=== PATIENT | female | born 1970 | race Caucasian/White ===

== ENCOUNTER 2016-12-22 18:47 | Emergency (ER) | payer BC, OTHER ==
[2016-12-22] MEDS ORDERED: ONDANSETRON 4 MG/2 ML VIAL IVP STA (19:00)
[2016-12-22] MEDS ORDERED: SODIUM CHLORIDE 0.9% 1,000 ML IV STA ×3 (19:00→20:15)
[2016-12-22] MEDS ORDERED: HYDROmorphone 1 MG/ML 1 ML SYRINGE IVP STA (19:00)
[2016-12-22] MEDS ORDERED: RX INFO: IV CONTRAST WAS GIVEN 1 EACH MISC MISCELLANE PRN (19:01)
--- NOTE | 2016-12-22 19:05 | ED ---
Abdominal Pain HPI - General Chief Complaint: Abdominal Pain Stated Complaint: pelvic pain Time Seen by Provider: 12/22/16 18:53 Source: patient, RN notes reviewed Mode of arrival: wheelchair Limitations: no limitations - History of Present Illness Initial Comments: Patient is a 46-year-old female with chief complaint of an acute onset of right lower quadrant abdominal pain. Patient reports that she has a history of ovarian cysts and also was told that she had a large appendix in the past. Patient reports that she was admitted to the hospital about 10 months ago for these issues. Patient reports that she did not have any surgery to remove the [place] ovarian cysts or they did not see that it was an acute appendicitis at that time. Patient reports that she was eating dinner and all of a sudden the pain occurred to her. Patient states that she rates the pain a 10 out of 10. She states it's worse with walking or the bumps in the car. Patient denies any recent fever or chills. She denies any trouble with urination or bowel movements. She is currently on her menstrual cycle, and has history of anemia while on her menstrual cycle. - Related Data Home Medications Medication Instructions Recorded Confirmed Venlafaxine HCl [Effexor] 150 mg PO DAILY 02/09/16 12/22/16 Previous Rx's Medication Instructions Recorded Ondansetron Odt [Zofran Odt] 4 mg PO Q8HR PRN #12 tab 12/22/16 traMADol HCl [Ultram] 50 mg PO Q6H PRN #20 tab 12/22/16 Allergies Allergy/AdvReac Type Severity Reaction Status Date / Time codeine Allergy Intermediate Nausea & Verified 12/22/16 18:50 Vomiting aspartame AdvReac Mild Rash/Hives Verified 12/22/16 18:50 Review of Systems ROS Statement: Those systems with pertinent positive or pertinent negative responses have been documented in the HPI. ROS Other: All systems not noted in ROS Statement are negative. Past Medical History Past Medical History: Sleep Apnea/CPAP/BIPAP Additional Past Medical History / Comment(s): sleep apnea, uses a cpap, depression, mild anemia History of Any Multi-Drug Resistant Organisms: None Reported Past Surgical History: Orthopedic Surgery Additional Past Surgical History / Comment(s): ovarian cyst, cervix biopsy, repail raidal fracture in right foot. Lateral release of right knee Past Anesthesia/Blood Transfusion Reactions: No Reported Reaction Additional Past Anesthesia/Blood Transfusion Reaction / Comment(s): mother had a wierd reaction to anesthesia with wierd dreams. Past Psychological History: Depression Smoking Status: Current every day smoker Past Alcohol Use History: None Reported, Occasional Past Drug Use History: None Reported - Past Family History Mother Family Medical History: Cancer, Dementia, Eye Disorder, Hypertension, Thyroid Disorder Additional Family Medical History / Comment(s): skin cancer, ovarian cysts, cataracts Father Family Medical History: Hypertension Additional Family Medical History / Comment(s): muscle aches for which he drink 8 ounces of tonic water every day. General Exam - General Exam Comments Initial Comments: Pleasant 46-year-old female. Patient does appear to be in significant discomfort. Limitations: no limitations General appearance: alert, in no apparent distress Head exam: Present: atraumatic, normocephalic, normal inspection Eye exam: Present: normal appearance, PERRL, EOMI. Absent: scleral icterus, conjunctival injection, periorbital swelling ENT exam: Present: normal exam, mucous membranes moist Neck exam: Present: normal inspection. Absent: tenderness, meningismus, lymphadenopathy Respiratory exam: Present: normal lung sounds bilaterally. Absent: respiratory distress, wheezes, rales, rhonchi, stridor Cardiovascular Exam: Present: regular rate, normal rhythm, normal heart sounds. Absent: systolic murmur, diastolic murmur, rubs, gallop, clicks GI/Abdominal exam: Present: soft, tenderness (Significant tenderness and guarding in the right lower quadrant.), guarding, normal bowel sounds. Absent: distended, rebound, rigid Extremities exam: Present: normal inspection, full ROM, normal capillary refill. Absent: tenderness, pedal edema, joint swelling, calf tenderness Back exam: Present: normal inspection Neurological exam: Present: alert, oriented X3, CN II-XII intact Psychiatric exam: Present: normal affect, normal mood Skin exam: Present: warm, dry, intact, normal color. Absent: rash Course Vital Signs 12/22/16 12/22/16 12/22/16 18:49 20:37 22:48 Temperature 99.5 F 97.5 F L 98.2 F Pulse Rate 89 85 83 Respiratory 22 18 20 Rate Blood Pressure 161/74 150/76 147/74 O2 Sat by Pulse 97 100 98 Oximetry Medical Decision Making - Medical Decision Making Patient is a 46-year-old female with chief complaint of an acute onset of right lower quadrant abdominal pain. Patient reports that she has a history of ovarian cysts and also was told that she had a large appendix in the past. Patient reports that she was admitted to the hospital about 10 months ago for these issues. Patient reports that she did not have any surgery to remove the [place] ovarian cysts or they did not see that it was an acute appendicitis at that time. Patient reports that she was eating dinner and all of a sudden the pain occurred to her. Patient states that she rates the pain a 10 out of 10. She states it's worse with walking or the bumps in the car. Patient's lab work was obtained and patient was given IV pain medication. Patient's CBC is significant for anemia. Hemoglobin of 9.5, patient reports that she does take iron pills. Patient did have a mildly elevated lactic acid of 2.6. Patient was rehydrated with 2 L of bolus and maintenance rate. Patient CT did make mention of right-sided ovarian cyst, no evidence of acute appendicitis. Transvaginal ultrasound shows bilateral ovarian cystic masses. The right cyst measures 9 cm x 6 cm. Left cyst measures 5 cm x 4 centers, no evidence of ovarian torsion. . There is also evidence of uterine fibroid. I discussed that the patient's anemia is likely related to the significant blood loss from her.. She is currently taking iron supplements. I discussed with the patient that she needs to follow-up with an [facility] for surgical consult of total hysterectomy. Patient's pain is related to a the right cyst. Patient agrees to call her insurance company tomorrow and discuss the possibility of surgeries. I will discharge the patient with pain medication and have her follow-up on Saturday. - Lab Data Result diagrams: 12/22/16 19:25 12/22/16 19:25 Lab Results 12/22/16 12/22/16 12/22/16 Range/Units 19:25 19: 19: WBC 8.6 (3.8-10.6) k/uL RBC 4.19 (3.80-5.40) m/uL Hgb 9.5 L (11.4-16.0) gm/dL Hct 31.1 L (34.0-46.0) % MCV 74.3 L (80.0-100.0) fL MCH 22.7 L (25.0-35.0) pg MCHC 30.5 L (31.0-37.0) g/dL RDW 15.8 H (11.5-15.5) % Plt Count 343 (150-450) k/uL Neutrophils % 70 % Lymphocytes % 20 % Monocytes % 5 % Eosinophils % 2 % Basophils % 1 % Neutrophils # 6.0 (1.3-7.7) k/uL Lymphocytes # 1.7 (1.0-4.8) k/uL Monocytes # 0.4 (0-1.0) k/uL Eosinophils # 0.2 (0-0.7) k/uL Basophils # 0.1 (0-0.2) k/uL Hypochromasia Marked Microcytosis Slight PT (9.0-12.0) sec INR (<1.1) APTT (22.0-30.0) sec Sodium 140 (137-145) mmol/L Potassium 3.8 (3.5-5.1) mmol/L Chloride 102 (98-107) mmol/L Carbon Dioxide 26 (22-30) mmol/L Anion Gap 12 mmol/L BUN 12 (7-17) mg/dL Creatinine 0.90 (0.52-1.04) mg/dL Est GFR (MDRD) Af Amer >60 (>60 ml/min/1.73 sqM) Est GFR (MDRD) Non-Af >60 (>60 ml/min/1.73 sqM) Glucose 100 H (74-99) mg/dL Plasma Lactic Acid Tomy (0.7-2.0) mmol/L Calcium 9.2 (8.4-10.2) mg/dL Total Bilirubin 0.3 (0.2-1.3) mg/dL AST 23 (14-36) U/L ALT 32 (9-52) U/L Alkaline Phosphatase 97 (38-126) U/L Total Protein 7.0 (6.3-8.2) g/dL Albumin 4.3 (3.5-5.0) g/dL Amylase 44 (30-110) U/L Lipase 138 (23-300) U/L Urine Color Yellow Urine Appearance Clear (Clear) Urine pH 7.5 (5.0-8.0) Ur Specific [place] 1.014 (1.001-1.035) Urine Protein Negative (Negative) Urine Glucose (UA) Negative (Negative) Urine Ketones Negative (Negative) Urine Blood Moderate H (Negative) Urine Nitrite Negative (Negative) Urine Bilirubin Negative (Negative) Urine Urobilinogen <2.0 (<2.0) mg/dL Ur Leukocyte Esterase Negative (Negative) Urine RBC >182 H (0-5) /hpf Urine WBC 3 (0-5) /hpf Ur Squamous Epith Cells 8 H (0-4) /hpf Amorphous Sediment Rare H (None) /hpf Hyaline Casts 1 (0-2) /lpf Urine Mucus Occasional H (None) /hpf 12/22/16 12/22/16 Range/Units 19:25 19:25 WBC (3.8-10.6) k/uL RBC (3.80-5.40) m/uL Hgb (11.4-16.0) gm/dL Hct (34.0-46.0) % MCV (80.0-100.0) fL MCH (25.0-35.0) pg MCHC (31.0-37.0) g/dL RDW (11.5-15.5) % Plt Count (150-450) k/uL Neutrophils % % Lymphocytes % % Monocytes % % Eosinophils % % Basophils % % Neutrophils # (1.3-7.7) k/uL Lymphocytes # (1.0-4.8) k/uL Monocytes # (0-1.0) k/uL Eosinophils # (0-0.7) k/uL Basophils # (0-0.2) k/uL Hypochromasia Microcytosis PT 10.5 (9.0-12.0) sec INR 1.0 (<1.1) APTT 23.7 (22.0-30.0) sec Sodium (137-145) mmol/L Potassium (3.5-5.1) mmol/L Chloride (98-107) mmol/L Carbon Dioxide (22-30) mmol/L Anion Gap mmol/L BUN (7-17) mg/dL Creatinine (0.52-1.04) mg/dL Est GFR (MDRD) Af Amer (>60 ml/min/1.73 sqM) Est GFR (MDRD) Non-Af (>60 ml/min/1.73 sqM) Glucose (74-99) mg/dL Plasma Lactic Acid Tomy 2.6 H* (0.7-2.0) mmol/L Calcium (8.4-10.2) mg/dL Total Bilirubin (0.2-1.3) mg/dL AST (14-36) U/L ALT (9-52) U/L Alkaline Phosphatase (38-126) U/L Total Protein (6.3-8.2) g/dL Albumin (3.5-5.0) g/dL Amylase (30-110) U/L Lipase (23-300) U/L Urine Color Urine Appearance (Clear) Urine pH (5.0-8.0) Ur Specific [place] (1.001-1.035) Urine Protein (Negative) Urine Glucose (UA) (Negative) Urine Ketones (Negative) Urine Blood (Negative) Urine Nitrite (Negative) Urine Bilirubin (Negative) Urine Urobilinogen (<2.0) mg/dL Ur Leukocyte Esterase (Negative) Urine RBC (0-5) /hpf Urine WBC (0-5) /hpf Ur Squamous Epith Cells (0-4) /hpf Amorphous Sediment (None) /hpf Hyaline Casts (0-2) /lpf Urine Mucus (None) /hpf - Radiology Data Radiology results: report reviewed Bilateral large cystic pelvic masses appear not significantly different than old computed tomography scan a . Consistent with ovarian cyst. Left renal parapelvic cyst. Normal appendix. There is probably a single gallstone. Transvaginal ultrasound obtained shows bilateral ovarian cystic masses. The cyst on the right side measures 9.5 x 6 cm. Septated cyst on the left side appears complex measures 5.3 x 4.4 cm. 4 x 3 cm uterine fibroid noted. No endometrial thickening. No free fluid. Ovarian cystic masses are not significantly different than old ultrasound exam on 02/09/2016. Disposition Clinical Impression: Ovarian cyst, Uterine fibroid, Iron deficiency anemia Disposition: HOME SELF-CARE Condition: Good Instructions: Ovarian Cyst (ED) Additional Instructions: Patient arrives to take pain medication as prescribed. Follow-up with [facility]. Discussed the possibility of the surgery in the future. Return to emergency department if any alarming signs or symptoms occur. Prescriptions: Ondansetron Odt [Zofran Odt] 4 mg PO Q8HR PRN #12 tab PRN Reason: Nausea traMADol HCl [Ultram] 50 mg PO Q6H PRN #20 tab PRN Reason: Pain Referrals: Víctor Mejia MD [Primary Care Provider] - 1-2 days Umair Medrano DO [Doctor of Osteopathic Medicine] - 1-2 days Time of Disposition: 22:29
[2016-12-22 19:51] LABS: Basophils # (A) 0.1 k/uL (0-0.2); Basophils % (A) 1 %; CH 22.4; CHCM 30.3; Eosinophils # (A) 0.2 k/uL (0-0.7); Eosinophils % (A) 2 %; HCT 31.1 % (34.0-46.0); HDW 3.08; HGB 9.5 gm/dL (11.4-16.0); Hypochromasia Marked; Luc # (Auto) 0.16; Luc % (Auto) 2; Lymphocytes # (A) 1.7 k/uL (1.0-4.8); Lymphocytes % (A) 20 %; MCH 22.7 pg (25.0-35.0); MCHC 30.5 g/dL (31.0-37.0); MCV 74.3 fL (80.0-100.0); Mean Platelet Volume 7.2; Microcytosis Slight; Monocytes # (A) 0.4 k/uL (0-1.0); Monocytes % (A) 5 %; Neutrophils % (A) 70 %; RBC 4.19 m/uL (3.80-5.40); RDW 15.8 % (11.5-15.5); WBC 8.6 k/uL (3.8-10.6); WBC (Perox) 9.17
--- NOTE | 2016-12-22 19:54 | XR ---
EXAMINATION TYPE: XR KUB DATE OF EXAM: 12/22/2016 7:42 PM COMPARISON: NONE HISTORY: Right lower quadrant pain TECHNIQUE: 2 views FINDINGS: Bowel gas pattern is normal. There is no sign of intestinal obstruction or pneumoperitoneum . Fecal pattern is normal. There is no sign of a mass. There are no pathologic calcifications over th e kidneys. IMPRESSION: Nonacute abdomen.
[2016-12-22 20:02] LABS: Amorphous Sediment,Urine Rare /hpf; Appearance,Urine Clear (Clear); Bilirubin,Urine Negative (Negative); Glucose,Urine (UA) Negative (Negative); Ketones,Urine Negative (Negative); Leukocyte Esterase,Urine Negative (Negative); Mucus,Urine Occasional /hpf; Nitrite,Urine Negative (Negative); PH, Urine 7.5 (5.0-8.0); Particle Count 2232; Protein,Urine Negative (Negative); RBC,Urine >182 /hpf (0-5); Specific Gravity,Urine 1.014 (1.001-1.035); Squamous Epithelial Cell,Urine 8 /hpf (0-4); UA Billing (MACRO vs. MICRO) MICRO; Urobilinogen,Urine <2.0 mg/dL (<2.0); WBC,Urine 3 /hpf (0-5)
[2016-12-22 20:09] LABS: ALT 32 U/L (9-52); AST 23 U/L (14-36); Alkaline Phosphatase 97 U/L (38-126); Amylase 44 U/L (30-110); Anion Gap 12 mmol/L; Blood Urea Nitrogen 12 mg/dL (7-17); Calcium 9.2 mg/dL (8.4-10.2); Carbon Dioxide 26 mmol/L (22-30); Chloride 102 mmol/L (98-107); Glucose 100 mg/dL (74-99); Non-African American GFR(MDRD) >60 (>60 ml/min/1.73 sqM); Potassium 3.8 mmol/L (3.5-5.1); Sodium 140 mmol/L (137-145); Total Bilirubin 0.3 mg/dL (0.2-1.3)
[2016-12-22 20:14] LABS: Partial Thromboplastin Time 23.7 sec (22.0-30.0); Prothrombin Time 10.5 sec (9.0-12.0)
--- NOTE | 2016-12-22 20:18 | CT ---
EXAMINATION TYPE: CT abdomen pelvis w con DATE OF EXAM: 12/22/2016 8:01 PM COMPARISON: 02/09/2016 HISTORY: Patient complains of RLQ pain x2 hours. CT DLP: 3065.1 mGycm Automated exposure control for dose reduction was used. TECHNIQUE: Helical acquisition of images was performed from the lung bases through the pelvis. CONTRAST: Performed without Oral Contrast and with IV Contrast, patient injected with 100 mL of Omnipaque 300. FINDINGS: Lung bases are clear. There is no pleural effusion. Liver spleen pancreas appear normal. Bile ducts a re not dilated. Gallbladder shows a possible single gallstone.. There is no adrenal mass. Kidneys hav e normal size and contour. There is a left renal parapelvic cyst. This measures 3 cm. Ureters are not dilated. Appendix appears normal. Bladder distends smoothly. There is no retroperitoneal adenopathy. There is no ascites. There are large relatively low density adnexal masses that measure 8 cm on the right side and 5.5 cm on the left side. I see no bony destructive process. IMPRESSION: BILATERAL LARGE CYSTIC PELVIC MASSES APPEAR NOT SIGNIFICANTLY DIFFERENT THAN OLD CT SCAN OF 02/09/2016 AND CONSISTENT WITH OVARIAN CYSTS. LEFT RENAL PARAPELVIC CYST. NORMAL APPENDIX. THERE IS PROBABLY A SINGLE GALLSTONE.
--- NOTE | 2016-12-22 22:02 | US ---
EXAMINATION TYPE: US transvaginal DATE OF EXAM: 12/22/2016 9:41 PM COMPARISON: 02/09/2016 CLINICAL HISTORY: Pain. TECHNIQUE: Transvaginal (TV) and Transabdominal (TA) Date of LMP: 12/17/16 EXAM MEASUREMENTS: Uterus: 11.3 x 5.6 x 6.6 cm Endometrial Stripe: 2.0 cm Right Ovary: 9.5 x 5.8 x 9.7 cm Left Ovary: 7.4 x 5.6 x 5.9 cm 1. Uterus: Anteverted, fibroid noted measuring 4.0 x 2.7 x 3.3cm 2. Endometrium: thickened 3. Right Ovary: Large cyst with internal echoes measuring 9.5 x 5.8 x 9.7cm, no peripheral tissue i dentified 4. Left Ovary: Cyst with internal echoes measuring 4.4 x 4.9 x 5.3cm Spectral, color and waveform doppler imaging performed. Right ovary shows no peripheral tissue, racquel ble to confirm blood flow, unable to confirm blood flow in left ovary this is probably due to depth. 5. Bilateral Adnexa: wnl 6. Posterior cul-de-sac: wnl Morbidly obese patient with large bilateral cysts. IMPRESSION: There are bilateral ovarian cystic masses. The cyst on the right side measures 9.5 x 6 cm . Septated cyst on the left side appears complex and measures 5.3 x 4.4 cm. 4 x 3 cm uterine fibroid noted. No endometrial thickening. No free fluid. The ovarian cystic masses are not significantly diff erent than old ultrasound exam of 02/09/2016.
[2016-12-22] MEDS ORDERED: traMADol 50 MG STARTER PACK 3 TAB BTL PO STA (22:28)
[2016-12-22 22:53] VITALS: BP 147/74; PULSE 83; RESP 20; TEMP 98.2
== END 2016-12-22 22:54 | disposition home or self-care (01) ==
LOC: EC 18:47
DX: N83.202 Unspecified ovarian cyst, left side (principal); N83.201 Unspecified ovarian cyst, right side; D25.9 Leiomyoma of uterus, unspecified; D50.9 Iron deficiency anemia, unspecified; F32.9 Major depressive disorder, single episode, unspecified; F17.200 Nicotine dependence, unspecified, uncomplicated; Z79.899 Other long term (current) drug therapy; Z88.5 Allergy status to narcotic agent; Z88.8 Allergy status to other drugs, medicaments and biological substances
CPT/HCPCS: 36415; 80053; 82150; 83605; 83690; 85025; 85610; 85730; 81001; 87086; 74000; 93975; 76830; 74177; 99284; 96374; 96375; 96361 ×3; J2405; J1170; Q9967

== ENCOUNTER 2017-01-26 23:53 | Emergency (ER) | payer BC ==
[2017-01-27 00:08] VITALS: BP 168/100; PULSE 90; RESP 18; TEMP 98.9
--- NOTE | 2017-01-27 00:20 | ED ---
ENT HPI - General Chief complaint: ENT Stated complaint: FB in ear Time Seen by Provider: 01/27/17 00:11 Source: patient, RN notes reviewed Mode of arrival: ambulatory Limitations: no limitations - History of Present Illness MD complaint: foreign body (qtip in left ear) Onset/Timin -: minutes(s) Location: L ear Severity: mild Severity scale (1-10): 1 Quality: other (irritating) Consistency: constant Improves with: none Worsens with: none - Related Data Home Medications Medication Instructions Recorded Confirmed Venlafaxine HCl [Effexor] 150 mg PO DAILY 02/09/16 01/27/17 Allergies Allergy/AdvReac Type Severity Reaction Status Date / Time codeine Allergy Intermediate Nausea & Verified 01/27/17 00:09 Vomiting aspartame AdvReac Mild Rash/Hives Verified 01/27/17 00:09 Review of Systems ROS Statement: Those systems with pertinent positive or pertinent negative responses have been documented in the HPI. ROS Other: All systems not noted in ROS Statement are negative. Past Medical History Past Medical History: Sleep Apnea/CPAP/BIPAP Additional Past Medical History / Comment(s): sleep apnea, uses a cpap, depression, mild anemia History of Any Multi-Drug Resistant Organisms: None Reported Past Surgical History: Orthopedic Surgery Additional Past Surgical History / Comment(s): ovarian cyst, cervix biopsy, repail raidal fracture in right foot. Lateral release of right knee Past Anesthesia/Blood Transfusion Reactions: No Reported Reaction Additional Past Anesthesia/Blood Transfusion Reaction / Comment(s): mother had a wierd reaction to anesthesia with wierd dreams. Past Psychological History: Depression Smoking Status: Current every day smoker Past Alcohol Use History: None Reported, Occasional Past Drug Use History: None Reported - Past Family History Mother Family Medical History: Cancer, Dementia, Eye Disorder, Hypertension, Thyroid Disorder Additional Family Medical History / Comment(s): skin cancer, ovarian cysts, cataracts Father Family Medical History: Hypertension Additional Family Medical History / Comment(s): muscle aches for which he drink 8 ounces of tonic water every day. General Exam Limitations: no limitations General appearance: alert, in no apparent distress Head exam: Present: atraumatic, normocephalic, normal inspection Eye exam: Present: normal appearance, PERRL, EOMI. Absent: scleral icterus, conjunctival injection, periorbital swelling ENT exam: Present: TM's normal bilaterally Expanded Ear exam: Present: normal external inspection TM/Canal exam: Foreign Body: Left TM (Q-tip, after removal TM shows no trauma as well as the ear canal) Mouth exam: Present: normal external inspection Course Vital Signs 01/27/17 00:05 Temperature 98.9 F Pulse Rate 90 Respiratory 18 Rate Blood Pressure 168/100 O2 Sat by Pulse 98 Oximetry Procedures - Foreign Body Removal Ear Location: ear canal (L) Foreign Body Suspected: organic matter Foreign Body Removed: yes Foreign Body Removal Technique: instrumentation Tympanic Membrane Intact: Yes Patient Tolerated Procedure: well Complications: none Medical Decision Making - Medical Decision Making 46-year-old female presents emergency Department chief complaint of Q-tip to the left ear. This time she underwent removal. We discussed care follow-up and return parameters should patient states she understood all questions were answered. She'll be discharged. Disposition Clinical Impression: Foreign body in left ear, initial encounter Disposition: HOME SELF-CARE Condition: Stable Instructions: Ear Foreign Body (ED) Additional Instructions: Please use medication as discussed. Please follow up with family doctor if symptoms have not improved over the next two days. Please return to the emergency room if your symptoms increase or worsen or for any other concerns. Referrals: Víctor Mejia MD [Primary Care Provider] - 1-2 days Time of Disposition: 00:19
== END 2017-01-27 00:27 | disposition home or self-care (01) ==
LOC: EC 23:53
DX: T16.2XXA Foreign body in left ear, initial encounter (principal); F32.9 Major depressive disorder, single episode, unspecified; F17.200 Nicotine dependence, unspecified, uncomplicated; Z79.899 Other long term (current) drug therapy; Z88.5 Allergy status to narcotic agent; Z88.8 Allergy status to other drugs, medicaments and biological substances
CPT/HCPCS: 69200; 99282

== ENCOUNTER 2017-07-03 00:03 | Emergency (ER) | payer BC ==
[2017-07-03] MEDS ORDERED: ONDANSETRON 4 MG/2 ML VIAL IVP STA (00:20)
[2017-07-03] MEDS ORDERED: SODIUM CHLORIDE 0.9% 1,000 ML IV STA ×2 (00:20)
[2017-07-03] MEDS ORDERED: MORPHINE SULFATE 4 MG/ML SYRINGE IV STA (00:20)
--- NOTE | 2017-07-03 00:25 | ED ---
General Adult HPI - General Chief complaint: Abdominal Pain Stated complaint: Abd Pain/Nausea Time Seen by Provider: 07/03/17 00:11 Source: patient, RN notes reviewed, old records reviewed Mode of arrival: wheelchair Limitations: no limitations - History of Present Illness Initial comments: 47 year old female presents with bilateral lower abdominal pain. Patient states her pain began proximally 4 hours prior to presentation. She has history of large bilateral ovarian cysts. Her pain is similar to the pain she has experienced with these cysts in the past. However the pain was much more severe. Time out 10. She does state the pain is worse on the right. She is also had nausea with no significant vomiting. She is also had subjective fever and chills. She has had 3 bowel movements over the past 5 hours. No diarrhea. Patient has had surgical removal of her ovarian cysts in the past. No other abdominal surgeries. No vaginal bleeding or vaginal discharge. Additional past medical history of hypertension for which she takes lisinopril. Patient has been taking tramadol for pain with minimal relief. - Related Data Home Medications Medication Instructions Recorded Confirmed Venlafaxine HCl [Effexor] 150 mg PO DAILY 02/09/16 07/03/17 Lisinopril [Prinivil] 10 mg PO DAILY 07/03/17 07/03/17 Previous Rx's Medication Instructions Recorded HYDROcodone/APAP 5-325MG [[place] 1 tab PO Q6HR PRN #12 tab 07/03/17 5-325] Allergies Allergy/AdvReac Type Severity Reaction Status Date / Time codeine Allergy Intermediate Nausea & Verified 01/27/17 00:09 Vomiting aspartame AdvReac Mild Rash/Hives Verified 01/27/17 00:09 Review of Systems ROS Statement: Those systems with pertinent positive or pertinent negative responses have been documented in the HPI. ROS Other: All systems not noted in ROS Statement are negative. Past Medical History Past Medical History: Sleep Apnea/CPAP/BIPAP Additional Past Medical History / Comment(s): sleep apnea, uses a cpap, depression, mild anemia History of Any Multi-Drug Resistant Organisms: None Reported Past Surgical History: Orthopedic Surgery Additional Past Surgical History / Comment(s): ovarian cyst, cervix biopsy, repail raidal fracture in right foot. Lateral release of right knee Past Anesthesia/Blood Transfusion Reactions: No Reported Reaction Additional Past Anesthesia/Blood Transfusion Reaction / Comment(s): mother had a wierd reaction to anesthesia with wierd dreams. Past Psychological History: Depression Smoking Status: Current every day smoker Past Alcohol Use History: None Reported, Occasional Past Drug Use History: None Reported - Past Family History Mother Family Medical History: Cancer, Dementia, Eye Disorder, Hypertension, Thyroid Disorder Additional Family Medical History / Comment(s): skin cancer, ovarian cysts, cataracts Father Family Medical History: Hypertension Additional Family Medical History / Comment(s): muscle aches for which he drink 8 ounces of tonic water every day. General Exam Limitations: no limitations General appearance: alert, in distress, obese Head exam: Present: atraumatic, normocephalic Eye exam: Present: normal appearance, PERRL ENT exam: Present: normal exam Neck exam: Present: normal inspection. Absent: tenderness, meningismus Respiratory exam: Present: normal lung sounds bilaterally. Absent: respiratory distress Cardiovascular Exam: Present: regular rate, normal rhythm GI/Abdominal exam: Present: soft. Absent: distended, tenderness, guarding, rebound Extremities exam: Present: normal inspection, normal capillary refill. Absent: pedal edema Neurological exam: Present: alert, oriented X3, CN II-XII intact. Absent: motor sensory deficit Psychiatric exam: Present: normal affect, normal mood Skin exam: Present: warm, dry, intact Course Vital Signs 07/03/17 07/03/17 00:07 02:11 Temperature 96.9 F L 98.7 F Pulse Rate 89 83 Respiratory 16 18 Rate Blood Pressure 126/58 163/81 O2 Sat by Pulse 100 98 Oximetry - Reevaluation(s) Reevaluation #1: 07/03/17 02:28 On reevaluation, patient is nearly pain-free. Medical Decision Making - Medical Decision Making 41 female presenting with bilateral lower abdominal pain and pelvic pain. Patient does have history of large ovarian cysts. Pain was associated with nausea, was 10 out of 10. Ultrasound is obtained, there is a hypertensive, 17, hemoglobin is stable and improved from previous. Urinalysis shows no signs of infection. Abdominal x-rays negative for intraperitoneal free air or acute findings. Ultrasound shows 8.6 cm right complex ovarian cyst, and a 4.1 cm complex left ovarian cyst. These are stable compared to prior. There is no free fluid in the pelvis, there is good arterial flow to both ovaries. On reevaluation patient is feeling much better. I did discuss the findings of an elevated white blood cell count. She will monitor for signs of infection and return if worsening abdominal pain. Patient is comfortable with this plan at this time. She'll be discharged home, and she'll follow up with OB. Diagnosis: Ovarian cyst - Lab Data Result diagrams: 07/03/17 00:28 07/03/17 00:28 Lab Results 07/03/17 07/03/17 07/03/17 Range/Units 00:28 00:28 00:28 WBC 17.1 H (3.8-10.6) k/uL RBC 4.31 (3.80-5.40) m/uL Hgb 10.6 L (11.4-16.0) gm/dL Hct 34.4 (34.0-46.0) % MCV 79.7 L (80.0-100.0) fL MCH 24.6 L (25.0-35.0) pg MCHC 30.8 L (31.0-37.0) g/dL RDW 15.9 H (11.5-15.5) % Plt Count 358 (150-450) k/uL Neutrophils % 84 % Lymphocytes % 11 % Monocytes % 3 % Eosinophils % 1 % Basophils % 0 % Neutrophils # 14.3 H (1.3-7.7) k/uL Lymphocytes # 1.8 (1.0-4.8) k/uL Monocytes # 0.6 (0-1.0) k/uL Eosinophils # 0.2 (0-0.7) k/uL Basophils # 0.1 (0-0.2) k/uL Hypochromasia Slight PT 10.1 (9.0-12.0) sec INR 1.0 (<1.2) APTT 23.5 (22.0-30.0) sec Sodium 137 (137-145) mmol/L Potassium 4.4 (3.5-5.1) mmol/L Chloride 103 (98-107) mmol/L Carbon Dioxide 21 L (22-30) mmol/L Anion Gap 13 mmol/L BUN 12 (7-17) mg/dL Creatinine 0.80 (0.52-1.04) mg/dL Est GFR (MDRD) Af Amer >60 (>60 ml/min/1.73 sqM) Est GFR (MDRD) Non-Af >60 (>60 ml/min/1.73 sqM) Glucose 128 H (74-99) mg/dL Plasma Lactic Acid Tomy (0.7-2.0) mmol/L Calcium 9.1 (8.4-10.2) mg/dL Total Bilirubin 0.3 (0.2-1.3) mg/dL AST 22 (14-36) U/L ALT 41 (9-52) U/L Alkaline Phosphatase 109 (38-126) U/L Total Protein 7.1 (6.3-8.2) g/dL Albumin 4.3 (3.5-5.0) g/dL Amylase 51 (30-110) U/L Lipase 110 (23-300) U/L Urine Color Urine Appearance (Clear) Urine pH (5.0-8.0) Ur Specific Nicholson (1.001-1.035) Urine Protein (Negative) Urine Glucose (UA) (Negative) Urine Ketones (Negative) Urine Blood (Negative) Urine Nitrite (Negative) Urine Bilirubin (Negative) Urine Urobilinogen (<2.0) mg/dL Ur Leukocyte Esterase (Negative) 07/03/17 07/03/17 Range/Units 00:28 02:00 WBC (3.8-10.6) k/uL RBC (3.80-5.40) m/uL Hgb (11.4-16.0) gm/dL Hct (34.0-46.0) % MCV (80.0-100.0) fL MCH (25.0-35.0) pg MCHC (31.0-37.0) g/dL RDW (11.5-15.5) % Plt Count (150-450) k/uL Neutrophils % % Lymphocytes % % Monocytes % % Eosinophils % % Basophils % % Neutrophils # (1.3-7.7) k/uL Lymphocytes # (1.0-4.8) k/uL Monocytes # (0-1.0) k/uL Eosinophils # (0-0.7) k/uL Basophils # (0-0.2) k/uL Hypochromasia PT (9.0-12.0) sec INR (<1.2) APTT (22.0-30.0) sec Sodium (137-145) mmol/L Potassium (3.5-5.1) mmol/L Chloride (98-107) mmol/L Carbon Dioxide (22-30) mmol/L Anion Gap mmol/L BUN (7-17) mg/dL Creatinine (0.52-1.04) mg/dL Est GFR (MDRD) Af Amer (>60 ml/min/1.73 sqM) Est GFR (MDRD) Non-Af (>60 ml/min/1.73 sqM) Glucose (74-99) mg/dL Plasma Lactic Acid Tomy 1.4 (0.7-2.0) mmol/L Calcium (8.4-10.2) mg/dL Total Bilirubin (0.2-1.3) mg/dL AST (14-36) U/L ALT (9-52) U/L Alkaline Phosphatase (38-126) U/L Total Protein (6.3-8.2) g/dL Albumin (3.5-5.0) g/dL Amylase (30-110) U/L Lipase (23-300) U/L Urine Color Light Yellow Urine Appearance Clear (Clear) Urine pH 6.5 (5.0-8.0) Ur Specific Nicholson 1.003 (1.001-1.035) Urine Protein Negative (Negative) Urine Glucose (UA) Negative (Negative) Urine Ketones Negative (Negative) Urine Blood Negative (Negative) Urine Nitrite Negative (Negative) Urine Bilirubin Negative (Negative) Urine Urobilinogen <2.0 (<2.0) mg/dL Ur Leukocyte Esterase Negative (Negative) Disposition Clinical Impression: Ovarian cyst Disposition: HOME SELF-CARE Condition: Good Prescriptions: HYDROcodone/APAP 5-325MG [[place] 5-325] 1 tab PO Q6HR PRN #12 tab PRN Reason: Pain Referrals: Víctor Mejia MD [Primary Care Provider] - 1-2 days Umair Medrano DO [Doctor of Osteopathic Medicine] - 1-2 days Time of Disposition: 02:31
--- NOTE | 2017-07-03 01:03 | XR ---
EXAMINATION TYPE: XR KUB DATE OF EXAM: 07/03/2017 COMPARISON: 12/22/2016 HISTORY: Pain TECHNIQUE: 2 views FINDINGS: There is no sign of intestinal obstruction or pneumoperitoneum. Fecal pattern is normal. Eusebia ng bases are clear. There are no pathologic calcifications. IMPRESSION: Nonacute abdomen. No change.
[2017-07-03 01:06] LABS: Basophils # (A) 0.1 k/uL (0-0.2); Basophils % (A) 0 %; CH 25.1; CHCM 31.6; Eosinophils # (A) 0.2 k/uL (0-0.7); Eosinophils % (A) 1 %; HCT 34.4 % (34.0-46.0); HDW 2.94; HGB 10.6 gm/dL (11.4-16.0); Hypochromasia Slight; Luc # (Auto) 0.11; Luc % (Auto) 1; Lymphocytes # (A) 1.8 k/uL (1.0-4.8); Lymphocytes % (A) 11 %; MCH 24.6 pg (25.0-35.0); MCHC 30.8 g/dL (31.0-37.0); MCV 79.7 fL (80.0-100.0); Mean Platelet Volume 7.6; Monocytes # (A) 0.6 k/uL (0-1.0); Monocytes % (A) 3 %; Neutrophils # (A) 14.3 k/uL (1.3-7.7); Neutrophils % (A) 84 %; RBC 4.31 m/uL (3.80-5.40); RDW 15.9 % (11.5-15.5); WBC 17.1 k/uL (3.8-10.6); WBC (Perox) 18.28
[2017-07-03 01:11] LABS: Partial Thromboplastin Time 23.5 sec (22.0-30.0); Prothrombin Time 10.1 sec (9.0-12.0)
[2017-07-03 01:17] LABS: ALT 41 U/L (9-52); AST 22 U/L (14-36); Alkaline Phosphatase 109 U/L (38-126); Amylase 51 U/L (30-110); Anion Gap 13 mmol/L; Blood Urea Nitrogen 12 mg/dL (7-17); Calcium 9.1 mg/dL (8.4-10.2); Carbon Dioxide 21 mmol/L (22-30); Chloride 103 mmol/L (98-107); Glucose 128 mg/dL (74-99); Non-African American GFR(MDRD) >60 (>60 ml/min/1.73 sqM); Potassium 4.4 mmol/L (3.5-5.1); Sodium 137 mmol/L (137-145); Total Bilirubin 0.3 mg/dL (0.2-1.3); Total Protein 7.1 g/dL (6.3-8.2)
--- NOTE | 2017-07-03 02:08 | US ---
EXAM: US Pelvis Complete, Transabdominal US Pelvis, Transvaginal CLINICAL HISTORY: Reason: Pain TECHNIQUE: Real-time transabdominal and transvaginal pelvic ultrasound (complete) with image documentation. Transvaginal imaging was used for better evaluation of the endometrium and adnexa. COMPARISON: US and CT 12/22/16 FINDINGS: Uterus/cervix: 10.9 x 5.7 x 7.9 cm. 3.3 x 2.7 x 2.7-cm anterior intramural hypoechoic lesion, likely myoma. Endometrial Stripe: 1.26 cm Right ovary: 9.5 x 6.2 x 8.2 cm. 8.6 x 5.9 x 7 cm complex right ovarian cyst with low-level echoes which may represent a hemorrhagic cyst, endometrioma or other complex ovarian cystic lesion. Normal blood flow. Left ovary: 6.8 x 5.0 x 4.7 cm. Complex left ovarian 4.1 x 2.6 x 3.8 cm cyst with low level echoes. Normal blood flow. Free fluid: No free fluid. Bladder: Unremarkable as visualized. Wall is normal thickness for degree of distention. IMPRESSION: 1. 8.6-cm complex right ovarian cyst. 4.1-cm complex left ovarian cyst. Overall these appear similar to the prior ultrasound and may represent endometriomas, hemorrhagic cysts or other complex cystic masses. Normal Doppler flow is once again seen bilaterally. 2. Anterior intramural fibroid.
[2017-07-03 02:12] VITALS: BP 163/81; PULSE 83; RESP 18; TEMP 98.7
[2017-07-03 02:14] LABS: Appearance,Urine Clear (Clear); Bilirubin,Urine Negative (Negative); Glucose,Urine (UA) Negative (Negative); Ketones,Urine Negative (Negative); Leukocyte Esterase,Urine Negative (Negative); Nitrite,Urine Negative (Negative); PH, Urine 6.5 (5.0-8.0); Protein,Urine Negative (Negative); Specific Gravity,Urine 1.003 (1.001-1.035); UA Billing (MACRO vs. MICRO) CHEM; Urobilinogen,Urine <2.0 mg/dL (<2.0)
== END 2017-07-03 02:44 | disposition home or self-care (01) ==
LOC: EC 00:03
DX: N83.202 Unspecified ovarian cyst, left side (principal); N83.201 Unspecified ovarian cyst, right side; F32.9 Major depressive disorder, single episode, unspecified; F17.200 Nicotine dependence, unspecified, uncomplicated; Z79.899 Other long term (current) drug therapy; Z88.8 Allergy status to other drugs, medicaments and biological substances; Z88.5 Allergy status to narcotic agent
CPT/HCPCS: 99285 ×2; 96374 ×2; 96375 ×2; 96361 ×3; 36415; 80053; 82150; 83605; 83690; 85025; 85610; 85730; 81003; 87040; 87086; 74000; 93975; 76830; J2270; J2405

== ENCOUNTER → 2018-07-15 | Outpatient (CLI) | payer BC ==
--- NOTE | 2018-07-16 14:43 | MM ---
Reason for exam: screening (asymptomatic). History: Patient is nulliparous. Took hormonal contraceptives for 6 months. Physical Findings: A clinical breast exam by your physician is recommended on an annual basis and results should be correlated with mammographic findings. MG Screening Mammo w CAD Bilateral CC and MLO view(s) were taken. There are scattered fibroglandular densities. There is no discrete abnormality. Benign intramammary lymph nodes upper outer quadrant right breast. A couple tiny benign oil cysts. ASSESSMENT: Negative, BI-RAD 1 RECOMMENDATION: Routine screening mammogram of both breasts in 1 year.
== END | disposition home or self-care (01) ==
LOC: RADMAMWWP 16:53
PROVIDERS: ATTEND Family Medicine
DX: Z12.31 Encounter for screening mammogram for malignant neoplasm of breast (principal)
CPT/HCPCS: 77067

== ENCOUNTER → 2020-03-15 | Outpatient (CLI) | payer BC ==
[2020-03-15 11:00] LABS: Basophils # (A) 0.1 k/uL (0-0.2); Basophils % (A) 1 %; Eosinophils # (A) 0.4 k/uL (0-0.7); Eosinophils % (A) 6 %; HCT 40.2 % (34.0-46.0); HGB 13.3 gm/dL (11.4-16.0); Lymphocytes # (A) 1.6 k/uL (1.0-4.8); Lymphocytes % (A) 25 %; MCH 28.6 pg (25.0-35.0); MCV 86.7 fL (80.0-100.0); Mean Platelet Volume 7.6; Monocytes # (A) 0.4 k/uL (0-1.0); Monocytes % (A) 6 %; Neutrophils # (A) 3.7 k/uL (1.3-7.7); Neutrophils % (A) 59 %; Platelet Count 268 k/uL (150-450); RBC 4.64 m/uL (3.80-5.40); RDW 13.7 % (11.5-15.5); WBC 6.3 k/uL (3.8-10.6)
[2020-03-15 11:15] LABS: African American GFR (CKD) >90 (>60 ml/min/1.73 sqM); Anion Gap 4 mmol/L; Blood Urea Nitrogen 13 mg/dL (7-17); Carbon Dioxide 29 mmol/L (22-30); Chloride 105 mmol/L (98-107); Glucose 113 mg/dL (74-99); Non-African American GFR(CKD) >90 (>60 ml/min/1.73 sqM); Potassium 4.2 mmol/L (3.5-5.1); Sodium 138 mmol/L (137-145)
[2020-03-15 11:32] LABS: HCG,Quantitative Serum <2.4 mIU/mL
== END | disposition home or self-care (01) ==
LOC: LABPAT 09:36
PROVIDERS: ATTEND Obstetrics & Gynecology Obstetrics
DX: Z01.818 Encounter for other preprocedural examination (principal); N83.209 Unspecified ovarian cyst, unspecified side; D25.9 Leiomyoma of uterus, unspecified; N92.0 Excessive and frequent menstruation with regular cycle
CPT/HCPCS: 36415; 80051; 82565; 82947; 84520; 84702; 85025; 86850; 86900; 86901; 87086; 93005

== ENCOUNTER 2020-03-22 05:55 | Observation (INO) | payer BC ==
[2020-03-16 16:25] VITALS: BMI 49.4
--- NOTE | 2020-03-21 09:47 | P.HPOB ---
History of Present Illness H&P Date: 03/21/20 Chief Complaint: uterine fibroids, large right ovarian cyst This is a 49 yo G0 female that presents for RAVH/RSO/DC. pt has known large right ovarian cyst 8 cm, uterus is enlarged at [id number], with uterine fibroids. she also has a h/o cystectomy for a prior large ovarian cyst. menses are noted to be irrregular with a heavy flow. she denies any bowel or bladder concerns today. she is desirous of definitive treatment with RAVH/RSO. Review of Systems Constitutional: Denies chills, Denies fatigue, Denies fever Ears, nose, mouth and throat: Denies headache Cardiovascular: Denies edema Respiratory: Denies dyspnea Gastrointestinal: Denies nausea, Denies vomiting Genitourinary: Reports pelvic pain Past Medical History Past Medical History: Blood Disorder, Hypertension, Sleep Apnea/CPAP/BIPAP Additional Past Medical History / Comment(s): Sleep apnea, uses a cpap, depression, mild anemia. Hx Freq, heavy menses, cyst Rt ovary History of Any Multi-Drug Resistant Organisms: None Reported Past Surgical History: Orthopedic Surgery Additional Past Surgical History / Comment(s): ovarian cyst, cervix biopsy, ORIF Rt radial fracture in right foot. Lateral release of right knee Past Anesthesia/Blood Transfusion Reactions: No Reported Reaction, Family History of Problems w/ Anesthesia Additional Past Anesthesia/Blood Transfusion Reaction / Comment(s): mother had a weird reaction to anesthesia with weird dream x1. Smoking Status: Current every day smoker - Past Family History Mother Family Medical History: Cancer, Dementia, Eye Disorder, Hypertension, Thyroid Disorder Additional Family Medical History / Comment(s): skin cancer, ovarian cysts, cataracts Father Family Medical History: Hypertension Additional Family Medical History / Comment(s): muscle aches for which he drink 8 ounces of tonic water every day. Medications and Allergies Home Medications Medication Instructions Recorded Confirmed Type Venlafaxine HCl [Effexor] 150 mg PO DAILY 02/09/16 03/16/20 History Ferrous Sulfate [Feosol] 325 mg PO DAILY 03/16/20 03/16/20 History Ibuprofen [Motrin Ib] 400 - 800 mg PO Q8H PRN 03/16/20 03/16/20 History Lisinopril-Hctz 20-12.5 mg 1 tab PO DAILY 03/17/20 03/17/20 History [Zestoretic 20-12.5] Allergies Allergy/AdvReac Type Severity Reaction Status Date / Time codeine Allergy Intermediate Nausea & Verified 03/16/20 15:51 Vomiting aspartame AdvReac Mild Glands Verified 03/16/20 15:51 swell at base of skull morphine AdvReac Itching Verified 03/16/20 15:51 Exam Osteopathic Statement: *. No significant issues noted on an osteopathic structural exam other than those noted in the History and Physical/Consult. Targeted PE in general this is a well nourished well developed femal in NAD, breathing is noted to be non labored, heart is RRR, abdomen is soft, no LE sarah ma. on exam external genitalia is normal without lesion vagina is pink and well rugated and no lesions are noted, cervix is healthy in appearence without lesion. uterus is enlarged and mobile. Assessment and Plan (1) Ovarian cyst Status: Acute Code(s): N83.209 - UNSPECIFIED OVARIAN CYST, UNSPECIFIED SIDE SNOMED Code(s): 59022408 (2) Uterine fibroid Status: Acute Code(s): D25.9 - LEIOMYOMA OF UTERUS, UNSPECIFIED SNOMED Code(s): 62367857 (3) Irregular menses Status: Acute Code(s): N92.6 - IRREGULAR MENSTRUATION, UNSPECIFIED SNOMED Code(s): 40524247 Plan: Plan RAVH/RSO/DC, possible open to complete the procedure. risks are reviewed including but not limited to infection, bleeding damage to bladder bowel, ureteric injury. she is understanding of these risks and will proceed.
[~2020-03-22 05:55] MED LIST: DEXAMETHASONE SOD PHOSPHATE 10 MG/ML 1 ML VIAL IV ONE; ONDANSETRON 4 MG/2 ML VIAL IVP ONE; SCOPOLAMINE 1.5MG/72HR PATCH TRANSDERM ONE; fentaNYL (PF) 50 MCG/ML 2 ML AMP IV PRN
[2020-03-22] MEDS ORDERED: ONDANSETRON 4 MG/2 ML VIAL ONE (06:20)
[2020-03-22] MEDS: LACTATED RINGERS 1,000 ML IV SCH ×2 (06:45→11:47)
[2020-03-22] MEDS ORDERED: fentaNYL (PF) 50 MCG/ML 2 ML AMP ONE (07:31)
[2020-03-22] MEDS ORDERED: GLYCOPYRROLATE 0.2 MG/ML 2 ML VIAL ONE (07:31)
[2020-03-22] MEDS ORDERED: MIDAZOLAM 2 MG/2 ML VIAL ONE (07:31)
[2020-03-22] MEDS ORDERED: NEOSTIGMINE 1 MG/ML 10 ML VIAL ONE (07:31)
[2020-03-22] MEDS ORDERED: LIDOCAINE 1% INJ 10MG/ML (20 ML MDV) ONE (07:31)
[2020-03-22] MEDS ORDERED: PROPOFOL 10 MG/ML 20 ML VIAL IV ONE (07:31)
[2020-03-22] MEDS ORDERED: SUCCINYLCHOLINE CHLORIDE VIAL 200 MG/10 ML VIAL IV ONE (07:31)
[2020-03-22] MEDS ORDERED: ACETAMINOPHEN IV (For NPO) 1,000 MG/100 ML VIAL ONE (07:31)
[2020-03-22] MEDS ORDERED: ROCURONIUM BROMIDE 10 MG/ML 5 ML VIAL IV ONE (07:31)
[2020-03-22] MEDS ORDERED: BUPIVACAINE (PF) 0.25% 30 ML VIAL SQ ONE ×3 (07:33→08:33)
[2020-03-22] MEDS ORDERED: SODIUM CHLORIDE 0.9% 100 ML with ceFAZolin 2,000 MG IV ONE ×2 (07:49)
[2020-03-22] MEDS ORDERED: Acetaminophen-Codeine 300-30mg TAB PO PRN ×2 (09:44)
[2020-03-22] MEDS ORDERED: IBUPROFEN 600 MG TAB PO PRN (09:44)
[2020-03-22] MEDS ORDERED: ONDANSETRON 4 MG/2 ML VIAL IVP PRN (09:44)
[2020-03-22] MEDS ORDERED: SIMETHICONE 80 MG CHEWABLE PO PRN (09:44)
--- NOTE | 2020-03-22 09:56 | P.OP ---
Date of Procedure: 03/22/20 Preoperative Diagnosis: Large right ovarian cyst, pelvic pain, irregular menstrual bleeding, heavy menstrual bleeding Postoperative Diagnosis: Same plus endometriosis, endometrioma Procedure(s) Performed: Robotic cyst vaginal hysterectomy with right salpingo-oophorectomy, diagnostic cystoscopy, lysis of adhesions Anesthesia: GRACE Surgeon: Linette Dailey Crisis Therapist #1: Gabriel Tello Estimated Blood Loss (ml): 100 IV fluids (ml): 1,000 Urine output (ml): 400 Pathology: other (Uterus cervix right fallopian tube and ovary) Condition: stable Disposition: PACU Indications for Procedure: This pleasant 49-year-old 0 presented to the office with multiple complaints of irregular heavy menstrual bleeding, and known right ovarian cyst. Ultrasound completed revealed an 8 cm ovarian cyst, benign in appearance on ultrasound. Patient elected definitive therapy as she does not desire childbearing Operative Findings: Enlarged globular uterus was noted anterior fibroid a proximally 5 cm. Right ovarian cyst, endometrioma was noted obliterating the posterior cul-de-sac. Left ovary and tube were normal in nature. Cystoscopy was performed at the end of the procedure normal bladder mucosa was noted bladder bubble, spillage from the ureteral orifices was noted with clear yellow urine. Description of Procedure: Patient was seen in the preoperative area procedure was reviewed once again and informed consent was obtained. Risks were reviewed including but not limited to infection, bleeding, damage to bladder, bowel, ureteric injury. Patient stated understanding and wished to proceed. Patient was taken back to the operating suite where general anesthesia was obtained without difficulty by the anesthesia department. She was prepped and draped in the normal sterile fashion in the dorsal lithotomy position. Renteria catheter was then placed under sterile technique. A weighted speculum was placed in the posterior vaginal vault the anterior lip of the cervix was visualized and grasped with a single-tooth tenaculum. The endocervical canal was dilated and a [employer] uterine manipulator was advanced into the uterus as a means to miniplate the uterus throughout the procedure. The balloon was insufflated the cervical cap was placed snugly against the cervix and all instruments removed from the patient's vaginal vault at that time. Attention was then turned the patient's abdomen where approximately 2 finger breaths above the umbilicus a small skin incision is made. Through this skin incision the Veress needles placed, once appears needles deemed to be in the appropriate position, with a drop of CO2 pressure. insufflation of CO2 gas was allowed to occur. At this time the trocar with the laparoscope in place was placed through the skin incision and toward the pneumoperitoneum under direct visualization. The trochars removed the sheath remaining in place the above-noted findings were visualized. The additional port sites are then placed at 10 cm lateral and 37 m inferior midline port these are 8 mm ports and placed under direct visualization. In the left upper quadrant a 12 mm trocar and sleeve is placed under direct visualization. At this time the da Marko robot is docked in the usual fashion. The operative arms are now placed. In the right operative arm the monopolar scissors, in the left operative arm the bipolar forceps is placed. Attention was then turned to the patient's right adnexa. Noted filmy adhesions to the posterior uterus were noted. These were taken down sharply with good visualization of the pelvic sidewall. Blunt dissection was then used to further remove the right ovarian cyst from the posterior uterus. Spillage of endometrioma is noted and this is removed with the suction magnet placer. Attention was then turned to the patient's left uterine ovarian ligament which was visualized coagulated distally and proximally and divided. This continued through the broad and toward the round which was coagulated distally and proximally divided. The bladder flap from the left was then created using sharp and blunt dissection. Attention was once again turned to the right endometrioma which further dissection want and sharp was used to remove this cyst from the posterior vagina and right pelvic sidewall. The right infant in both pelvic ligament was visualized coagulated distally and proximally and divided. This continued through the broad and toward the round which was coagulated distally and proximally divided. Once again the right ovarian cyst was noted be free from the posterior uterus and pelvic sidewall. The bladder flap from the right was then created using sharp and blunt dissection. A Ray-Rosa was placed into the abdomen as a means dissect the bladder further away from the operating field. This was then removed. Attention was then turned to the posterior cul-de-sac which was free from adhesions or cyst wall. At this time the ascending branch of the uterine artery was visualized on the right this was coagulated distally and proximal main divided this was then repeated on the opposite side. The uterus was noted to be avascular at this point therefore the only remaining attachment was the vaginal attachment and a colpotomy incision is made. The uterus right fallopian tube and cyst were delivered through the vaginal opening. The pelvis was then co piously irrigated and the vaginal cuff was closed with multiple [id number] sutures of 0 Vicryl. Hemostasis was appreciated. The pelvic was then irrigated once again given the presence of endometrioma spillage. FloSeal was placed along the vaginal cuff and cul-de-sac secondary to blunt dissection of the right ovarian cyst. He states his was appreciated. All instruments were then removed from the patient's abdomen and the da Marko robot was undocked in the usual fashion. Attention was then turned to the Renteria catheter which was removed without difficulty. Of note throughout the procedure clear yellow urine was noted spilling from the Renteria catheter. The cystoscope was then placed through the urethra and toward the bladder bladder bubble was visualized and both ureteral orifices were spilling clearly urine a complete survey of the bladder revealed completely normal bladder mucosa. The the cystoscope was then removed and the Renteria catheter was replaced. Attention then turned to the patient's abdomen where the skin incisions were closed with 4-0 Vicryl in a subcuticular fashion. Steri-Strips and sterile dressings were applied. Patient tolerated procedure well and was taken the recovery room awake in stable condition of note all counts were correct 2.
[2020-03-22] MEDS ORDERED: IBUPROFEN IV 800 MG in SODIUM CHLORIDE 0.9% 250 ML IV ONE (10:00)
[2020-03-22] MEDS: HYDROmorphone 0.5 MG/0.5 ML SYRINGE IVP PRN ×2 (10:27→10:32)
[2020-03-22] MEDS ORDERED: hydrALAZINE HCL 20 MG/ML 1 ML VIAL IVP ONE (11:04)
[2020-03-22] MEDS ORDERED: SENNOSIDES-DOCUSATE SODIUM 1 EACH TAB PO SCH (21:00)
[2020-03-23 06:25] LABS: Basophils % (A) 0 %; Eosinophils # (A) 0.1 k/uL (0-0.7); Eosinophils % (A) 1 %; HCT 36.7 % (34.0-46.0); HGB 11.8 gm/dL (11.4-16.0); Hypochromasia Slight; Lymphocytes # (A) 1.4 k/uL (1.0-4.8); Lymphocytes % (A) 11 %; MCH 28.6 pg (25.0-35.0); MCHC 32.2 g/dL (31.0-37.0); MCV 88.8 fL (80.0-100.0); Mean Platelet Volume 7.7; Monocytes # (A) 0.6 k/uL (0-1.0); Monocytes % (A) 4 %; Neutrophils % (A) 83 %; Platelet Count 291 k/uL (150-450); RBC 4.13 m/uL (3.80-5.40); RDW 13.9 % (11.5-15.5); WBC 13.3 k/uL (3.8-10.6)
[2020-03-23] MEDS: LACTATED RINGERS 1,000 ML IV SCH (07:38)
[2020-03-23 07:44] VITALS: BP 121/75; PULSE 88; RESP 16; TEMP 97.9
--- NOTE | 2020-03-23 08:11 | P.DS ---
Providers Date of admission: 03/22/2020 Expected date of discharge: 03/23/20 Attending physician: Linette Dailey Primary care physician: Guillermo Mejia - Discharge Diagnosis(es) (1) Ovarian cyst Current Visit: No Status: Acute (2) Uterine fibroid Current Visit: No Status: Acute (3) Irregular menses Current Visit: No Status: Acute (4) S/P laparoscopic hysterectomy Current Visit: Yes Status: Acute Hospital Course: This is a pleasant 49-year-old 0 that presented to the hospital yesterday for planned robotic-assisted vaginal hysterectomy with right salpingo- for ectomy, diagnostic cystoscopy. Patient has a long-standing history of irregular heavy periods, known uterine fibroids and right ovarian cyst. Ultrasound evaluation of the pelvis revealed ovarian cyst to be approximately 8 cm in size. Patient was taken to the operating suite where hysterotomy was performed without difficulty. Large right ovarian endometrioma was noted in addition to an anterior uterine fibroid. Surgery was completed without difficulty for further details on the surgery please see the operative report. Patient's postoperative course has been essentially uneventful. On this postop day 1 she is ambulating and voiding without difficulty. She is tolerating a regular diet without nausea or vomiting. she denies concerns and states her pain is controlled with oral ibuprofen. She states she feels ready for discharge home. Patient Condition at Discharge: Good Plan - Discharge Summary Discharge Rx Participant: No New Discharge Prescriptions: No Action Venlafaxine HCl [Effexor] 150 mg PO DAILY Ibuprofen [Motrin Ib] 400 - 800 mg PO Q8H PRN PRN Reason: Pain Ferrous Sulfate [Feosol] 325 mg PO DAILY Lisinopril-Hctz 20-12.5 mg [Zestoretic 20-12.5] 1 tab PO DAILY Discharge Medication List Venlafaxine HCl [Effexor] 150 mg PO DAILY 02/09/16 [History] Ferrous Sulfate [Feosol] 325 mg PO DAILY 03/16/20 [History] Ibuprofen [Motrin Ib] 400 - 800 mg PO Q8H PRN 03/16/20 [History] Lisinopril-Hctz 20-12.5 mg [Zestoretic 20-12.5] 1 tab PO DAILY 03/17/20 [History] Follow up Appointment(s)/Referral(s): Linette Dailey DO [Doctor of Osteopathic Medicine] - 2 Weeks Activity/Diet/Wound Care/Special Instructions: No tub baths or intercourse until 6-8 weeks postop. Patient may take Steri- Strips off at 7-10 days postop. Patient may experience vaginal spotting or li ght bleeding. Patient is to call the office with any concerns prior to her postoperative appointment. Discharge Disposition: HOME SELF-CARE
== END 2020-03-23 09:00 | disposition home or self-care (01) ==
LOC: OR 05:55 → 4FBP 09:44 → INTOOBSV 09:44 → 4FBP 09:47 → OR 03-23 09:00 → 4FBP 03-23 09:00 → UNDODISIN 03-23 09:00
PROVIDERS: ADMIT Obstetrics & Gynecology Obstetrics; ATTEND Obstetrics & Gynecology Obstetrics
PROC: 0UT0FZZ Resection of Right Ovary, Via Natural or Artificial Opening With Percutaneous Endoscopic Assistance (ICD-10-PCS; 2020-03-22)
PROC: 8E0W4CZ Robotic Assisted Procedure of Trunk Region, Percutaneous Endoscopic Approach (ICD-10-PCS; 2020-03-22)
PROC: 0TJB8ZZ Inspection of Bladder, Via Natural or Artificial Opening Endoscopic (ICD-10-PCS; 2020-03-22)
PROC: 0UT9FZZ Resection of Uterus, Via Natural or Artificial Opening With Percutaneous Endoscopic Assistance (ICD-10-PCS; principal; 2020-03-22 07:30)
PROC: 0UT5FZZ Resection of Right Fallopian Tube, Via Natural or Artificial Opening With Percutaneous Endoscopic Assistance (ICD-10-PCS; 2020-03-22 07:30)
DX: D25.1 Intramural leiomyoma of uterus (principal); N83.291 Other ovarian cyst, right side; N92.6 Irregular menstruation, unspecified; I10 Essential (primary) hypertension; D64.9 Anemia, unspecified; N80.1 Endometriosis of ovary; F17.210 Nicotine dependence, cigarettes, uncomplicated; G47.33 Obstructive sleep apnea (adult) (pediatric); Z99.89 Dependence on other enabling machines and devices; F32.9 Major depressive disorder, single episode, unspecified; Z79.1 Long term (current) use of non-steroidal anti-inflammatories (NSAID); Z79.899 Other long term (current) drug therapy; Z88.5 Allergy status to narcotic agent; Z91.02 Food additives allergy status; Z98.890 Other specified postprocedural states; Z87.81 Personal history of (healed) traumatic fracture; Z82.49 Family history of ischemic heart disease and other diseases of the circulatory system; Z84.2 Family history of other diseases of the genitourinary system; Z83.518 Family history of other specified eye disorder; Z80.8 Family history of malignant neoplasm of other organs or systems; Z83.49 Family history of other endocrine, nutritional and metabolic diseases; Z81.8 Family history of other mental and behavioral disorders
CPT/HCPCS: 58552; 81025; 85025; 88307; G0378 ×2; C1762; J2250; J0330; J1100; J2710; J2405; J0690; J2001; J3010; J0131; J1741; J2704; J1170; 86850; 86900; 86901

== ENCOUNTER → 2022-06-06 | Outpatient (CLI) | payer BC ==
--- NOTE | 2022-06-13 15:08 | MM ---
Reason for Exam: Screening (asymptomatic). Last mammogram was performed 3 year(s) and 11 month(s) ago. Patient History: Menarche at age 11. Patient has no children. Right ovary removed at age 50. Hysterectomy at age 50. Postmenopausal. Hormonal Contraceptives for 6 months. Risk Values: Gena 5 year model risk: 1.2%. NCI Lifetime model risk: 9.4%. Prior Study Comparison: 07/15/2018 Bilateral Screening Mammogram, [facility]. Tissue Density: The breast tissue is almost entirely fat. Findings: Analyzed By CAD. There is no suspicious group of microcalcifications or new suspicious mass in either breast. Overall Assessment: Negative, BI-RAD 1 Management: Screening Mammogram of both breasts in 1 year. A clinical breast exam by your physician is recommended on an annual basis and results should be correlated with mammographic findings. Electronically signed and approved by: Jose Rafael Matthews DO
== END | disposition home or self-care (01) ==
LOC: RADMAMWWP 16:25
PROVIDERS: ATTEND Family Medicine
DX: Z12.31 Encounter for screening mammogram for malignant neoplasm of breast (principal)
CPT/HCPCS: 77067

== ENCOUNTER 2024-07-21 09:52 | Day surgery (SDC) | payer BC ==
[2024-07-16 11:26] VITALS: BMI 52.4
[~2024-07-21 09:52] MED LIST changes: -DEXAMETHASONE SOD PHOSPHATE 10 MG/ML 1 ML VIAL IV ONE; +LACTATED RINGERS 1,000 ML IV SCH; +LIDOCAINE 1% (10MG/ML) FOR IV START INTRADERMA PRN; -ONDANSETRON 4 MG/2 ML VIAL IVP ONE; +ONDANSETRON 4 MG/2 ML VIAL IVP PRN; -SCOPOLAMINE 1.5MG/72HR PATCH TRANSDERM ONE; -fentaNYL (PF) 50 MCG/ML 2 ML AMP IV PRN
[2024-07-21 10:35] VITALS: TEMP 96.9
[2024-07-21] MEDS: IV FLUID CONTINUATION 1,000 ML IV ONE (10:41)
[2024-07-21] MEDS ORDERED: PROPOFOL 10 MG/ML 20 ML VIAL IV ONE (11:57)
--- NOTE | 2024-07-21 12:17 | P.PCN ---
Date of Procedure: 07/21/24 Procedure(s) Performed: BRIEF HISTORY: Patient is a 54-year-old pleasant white female scheduled for an elective colonoscopy as a part of screening for colon cancer. PROCEDURE PERFORMED: Colonoscopy snare polypectomy. PREOPERATIVE DIAGNOSIS: Screening for colon cancer. IV sedation per Anesthesia. PROCEDURE: After informed consent was obtained, the patient, was brought into the endoscopy unit. IV sedation was administered by Anesthesia under continuous monitoring. Digital rectal examination was normal. Initially the Olympus CF-160 flexible video colonoscope was then inserted in the rectum, gradually advanced into the cecum without any difficulty. Careful examination was performed as the scope was gradually being withdrawn. Ileocecal valve and the appendiceal orifice were visualized and appeared normal. Prep was excellent. Mucosa of the cecum, appeared normal. The ascending colon there was a 1 cm flat polyp removed by cold snare polypectomy. Rest of the ascending colon, transverse colon, descending colon, sigmoid colon, and rectum appeared normal. Retroflexion was performed in the rectum and no lesions were seen. The patient tolerated the procedure well. IMPRESSION: 1 cm flat descending colon polyp status post cold snare polypectomy Rest of the colon appeared normal RECOMMENDATIONS: Findings of this examination were discussed with the patient as well as his family.. She was advised to follow-up with the biopsy results. If the biopsy reveals adenoma she can have repeat colonoscopy in 3 years
[2024-07-21 12:36] VITALS: BP 113/68; PULSE 72; RESP 18
== END 2024-07-21 12:56 | disposition home or self-care (01) ==
LOC: ORWHC2ENDO 09:52
PROVIDERS: ATTEND Internal Medicine Gastroenterology
CPT/HCPCS: 45385; 88305

== ENCOUNTER → 2024-09-28 | Day surgery (SDC) | payer BC ==
--- NOTE | 2024-10-06 12:34 | MM ---
Reason for Exam: Post Procedure Mammogram. Last mammogram was performed 2 year(s) and 3 month(s) ago. Patient History: Menarche at age 11. Patient has no children. Right ovary removed at age 50. Hysterectomy at age 50. Postmenopausal. Hormonal Contraceptives for 6 months. Risk Values: Gena 5 year model risk: 1.3%. NCI Lifetime model risk: 9.1%. Prior Study Comparison: 07/15/2018 Bilateral Screening Mammogram, [facility]. 06/06/2022 Bilateral MG screening mammo w CAD, [facility]. Tissue Density: Right: The breasts are almost entirely fatty. Pathology Description: Location: 2 o'clock. Needle Type: Mammotone Cores: 6 Skin Nicks: 1 The procedure of ultrasound guided core biopsy was explained to the patient. Benefits, alternatives, and risks were discussed. An informed consent was then obtained. A timeout was performed. The patient was placed in supine positioning for imaging and for the procedure. The overlying skin was prepped and draped in usual sterile fashion. Lidocaine with sodium bicarbonate was used as anesthetic into the skin and lidocaine with epinephrine and sodium bicarbonate subcutaneous tissue up to area of concern in the right breast. A small skin tere was made with surgical scalpel. Under ultrasound guidance, a 12-gauge vacuum assisted biopsy gun device was used to obtain 6 core samples. A biopsy clip was left in lesion. Hydromark coil core marker was placed. The patient tolerated the procedure well without any immediate complication. The patient was kept in the radiology department for short stay after the procedure and then discharged home in stable condition. Postprocedure mammogram: The patient was transferred to mammography for physician ordered post procedure mammogram for clip placement verification. Post procedure mammogram demonstrates the clip in appropriate placement. Impression: Successful ultrasound guided core biopsy of area of concern in the right breast, full pathology results to follow. Recommendations: 1. Recommendations are pending pathology results. [facility], , 09/28/2024 3:50 PM. Pathology Results: Result: Malignant, Invasive ductal carcinoma. Pathology and radiology were reviewed. Findings are concordant. RIGHT BREAST, TWO O'CLOCK, ULTRASOUND GUIDED NEEDLE CORE BIOPSY: Invasive poorly differentiated ductal carcinoma (Grade 3). See Surgical Pathology Cancer Case Summary. Overall Assessment: Malignant Assessment: MG diagnostic mammo RT wo CAD - Right: Known biopsy proven malignancy, BI-RAD 6. Management: Surgical Consultation of the right breast. Electronically signed and approved by: Dl Snider D.O. Radiologis
== END ==
LOC: RADUSWWP 12:29
PROVIDERS: ATTEND Surgery
DX: C50.211 Malignant neoplasm of upper-inner quadrant of right female breast (principal); Z90.721 Acquired absence of ovaries, unilateral; Z78.0 Asymptomatic menopausal state
CPT/HCPCS: 88305; 88342; 88341; 77065; 19083; A4648

== ENCOUNTER → 2024-10-09 | Outpatient (CLI) | payer BC ==
[2024-10-09 08:46] VITALS: BP 132/84; PULSE 89; RESP 17; TEMP 97.2
--- NOTE | 2024-10-09 09:30 | P.GSCN ---
History of Present Illness Consult date: 10/09/24 Reason for Consult: invasive ductal cancer left breast Requesting physician: Víctor Mejia History of present illness: Kellen is a 54 year old female seen in consultation for Dr. Mejia regarding a biopsy proven right breast invasive ductal cancer at the two OClock position of the right breast. She had a bilateral mammogram on 08-18-24 which showed a lesion of 23 mm in the right breast, no lesions of concern in the left breast. This led to an ultrasound of the right breast and a biopsy of the area of concern on 09-28-24. Her biopsy was an invasive ductal cancer ER+, Pr+ Her2- G3 lesion on 09-28-24. Mammogram and ultrasound personally reviewed and discussed with Dr. Matthews from radiology. She did not feel any lumps masses or nodules of concern in either breast. She gets mammograms annually. She is not complaining of any nipple discharge or skin changes. She has not had any recent trauma or infection in the breast. She has never had any surgery on her breast. caffiene: 24 oz /day nicotine: 1/2 PPD smoking for about 30 years chocolate: daily BCP: 6 months in her 20's hormones: none Note Dr. 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; did MRI for a while and no longer followed; used to follow with in [place] (in her 's) sleep apnea HTN depression Social History: nicotine: as above alcohol: 3/4 drinks /week, spirits drugs: none Review of Systems - Constitutional Denies fever, Denies weight loss - EENT Eyes: denies blurred vision Ears: deny: decreased hearing, tinnitus Ears, nose, mouth and throat: Denies dysphagia - Breasts bilateral: as per HPI - Cardiovascular Denies chest pain, Denies shortness of breath - Respiratory Denies cough, Denies 7 - Gastrointestinal Reports as per HPI - Genitourinary Genitourinary: Denies dysuria, Denies hematuria Menstruation: Reports post hysterectomy - Musculoskeletal Reports as per HPI - Integumentary Denies rash, Denies unusual bruising - Neurological Denies headaches, Denies syncope - Psychiatric Reports depression - Endocrine Reports as per HPI - Hematologic/Lymphatic Denies easy bleeding, Denies easy bruising - Allergic/Immunologic Reports as per HPI Past Medical History Past Medical History: Sleep Apnea/CPAP/BIPAP Additional Past Medical History / Comment(s): uses cpap depression, mild anemia resolved with hysterectomy History of Any Multi-Drug Resistant Organisms: None Reported Past Surgical History: Hysterectomy, Orthopedic Surgery Additional Past Surgical History / Comment(s): ovarian cyst, cervix biopsy, repair radial fracture in right foot. Lateral release of right knee Past Anesthesia/Blood Transfusion Reactions: No Reported Reaction Additional Past Anesthesia/Blood Transfusion Reaction / Comm: mother had a "weird reaction to anesthesia with hallucinations and delusions" Past Psychological History: Depression Smoking Status: Current every day smoker Past Alcohol Use History: Occasional Additional Past Alcohol Use History / Comment(s): Smoking < 1 ppd, sice 1989 Past Drug Use History: None Reported - Past Family History Mother Family Medical History: Cancer, Dementia, Eye Disorder, Hypertension, Thyroid Disorder Additional Family Medical History / Comment(s): skin cancer, ovarian cysts, cataracts Father Family Medical History: Hyperlipidemia, Hypertension Additional Family Medical History / Comment(s): Parkinson's Medications and Allergies Home Medications Medication Instructions Recorded Confirmed Type Venlafaxine HCl [Effexor] 150 mg PO QAM 02/09/16 10/09/24 History Ibuprofen [Motrin Ib] 400 - 800 mg PO Q8H PRN 03/16/20 10/09/24 History Lisinopril-Hctz 20-12.5 mg 1 tab PO DAILY 03/17/20 10/09/24 History [Zestoretic 20-12.5] Cariprazine HCl [Vraylar] 3 mg PO QAM 07/16/24 10/09/24 History amLODIPine [Norvasc] 5 mg PO QAM 07/16/24 10/09/24 History Allergies Allergy/AdvReac Type Severity Reaction Status Date / Time codeine Allergy Intermediate Nausea & Verified 10/09/24 08:43 Vomiting aspartame AdvReac Mild Glands Verified 10/09/24 08:43 swell at base of skull morphine AdvReac Itching Verified 10/09/24 08:43 Surgical - Exam Vital Signs Temp Pulse Resp BP Pulse Ox 97.2 F L 89 17 132/84 97 10/09/24 08:44 10/09/24 08:44 10/09/24 08:44 10/09/24 08:44 10/09/24 08:44 - General no distress - Eyes normal ocular movement - ENT no hearing loss - Neck trachea midline - Respiratory normal respiratory effort, clear to auscultation - Cardiovascular Rhythm: regular Heart Sounds: normal: S1, S2 - Abdomen Abdomen: soft - Integumentary normal turgor - Neurologic no disoriented, no combative - Musculoskeletal normal gait - Psychiatric oriented to time, oriented to person, oriented to place, speech is normal, memory intact Breast Exam: Bra: 46DDD Inspection: Ecchymosis medial aspect of right breast, bilateral grade 3 ptosis Palpation: Right breast: Multi positional exam dense fibroglandular tissue, mass upper inner quadrant of the right breast which is approximately 3 cm in size corresponding to the biopsy-proven malignancy Right axilla: No adenopathy of concern Left breast: Multi positional exam no dominant masses or nodules of concern Left axilla: No adenopathy of concern Results Mammogram and ultrasound personally reviewed with radiology lesion right breast approximately 2 to 3 cm in size, biopsy-proven grade 3 invasive ductal carcinoma Assessment and Plan Assessment: Impression: Right breast invasive ductal carcinoma Macromastia with back pain Plan: Presentation of case at tumor board CCL Dr. Mejia
== END ==
LOC: WWCWWP 08:28
PROVIDERS: ATTEND Surgery
DX: C50.911 Malignant neoplasm of unspecified site of right female breast (principal); N62 Hypertrophy of breast; F17.210 Nicotine dependence, cigarettes, uncomplicated; Z88.5 Allergy status to narcotic agent; Z88.8 Allergy status to other drugs, medicaments and biological substances; Z17.0 Estrogen receptor positive status [ER+]; Z17.21 Progesterone receptor positive status

== ENCOUNTER 2024-12-01 07:12 | Day surgery (SDC) | payer BC ==
[~2024-12-01 07:12] MED LIST changes: +HYDROmorphone 0.5 MG/0.5 ML SYRINGE IVP PRN; -LACTATED RINGERS 1,000 ML IV SCH; +MIDAZOLAM 2 MG/2 ML VIAL IV PRN; -ONDANSETRON 4 MG/2 ML VIAL IVP PRN; +fentaNYL (PF) 50 MCG/ML 2 ML AMP IVP PRN
[2024-12-01] MEDS ORDERED: METHYLENE BLUE 50 MG/10 ML AMPUL MISCELLANE ONE (07:30)
[2024-12-01] MEDS: IV FLUID CONTINUATION 1,000 ML IV ONE ×2 (07:48→11:26)
[2024-12-01] MEDS: DEXAMETHASONE SOD PHOSPHATE 4 MG/ML 1 ML VIAL IV ONE (08:14)
[2024-12-01] MEDS: ACETAMINOPHEN TAB 500 MG TAB PO PRN (08:14)
[2024-12-01] MEDS: ONDANSETRON 4 MG/2 ML VIAL IVP ONE (08:15)
[2024-12-01] MEDS: ALPRAZolam 0.5 MG TAB PO STA (08:16)
[2024-12-01] MEDS: LACTATED RINGERS 1,000 ML IV SCH (08:17)
--- NOTE | 2024-12-01 08:46 | P.NAPBC ---
NAPBC Queries - NAPBC Queries Was patient's case review presented at [facility] tumor board? If no, comment.: Yes Was patient's pathology reviewed at [facility]? If no, comment.: Yes Was breast conservation surgery offered? If no, comment.: Yes Was sentinel node biopsy offered? If no, comment.: Yes Was diagnosis confirmed by percutaneous core biopsy? If no, comment.: Yes Is patient mastectomy patient?: No Clinical Stage: [id number]+Her2-G3 right breast invasive ductal cancer
[2024-12-01] MEDS: SODIUM BICARB 8.4% 50 ML VIAL (1 MEQ/ML) MISCELLANE ONE (08:48)
[2024-12-01] MEDS: LIDOCAINE 1% INJ 10MG/ML (20 ML MDV) SQ ONE ×3 (08:48→13:04)
[2024-12-01] MEDS: METHYLENE BLUE 50 MG/10 ML AMPUL MISCELLANE ONE (08:56)
[2024-12-01] MEDS: HEPARIN SODIUM,PORCINE 5,000 UNIT/ML 1 ML VIAL SQ PRN (09:30)
[2024-12-01 09:32] VITALS: TEMP 98.3
[2024-12-01] MEDS ORDERED: LIDOCAINE 1% INJ 10MG/ML (20 ML MDV) ONE (09:34)
[2024-12-01] MEDS ORDERED: PHENYLEPHRINE 10 MG/ML VIAL ONE (09:34)
[2024-12-01] MEDS ORDERED: fentaNYL (PF) 50 MCG/ML 2 ML AMP ONE (09:34)
[2024-12-01] MEDS ORDERED: SUCCINYLCHOLINE CHLORIDE 200 MG/10 ML VIAL IV ONE (09:34)
[2024-12-01] MEDS ORDERED: HYDROmorphone (PF) 1 MG/ML ONE (09:34)
[2024-12-01] MEDS ORDERED: ePHEDrine 50 MG/ML 1 ML VIAL ONE (09:34)
[2024-12-01] MEDS ORDERED: PROPOFOL 10 MG/ML 20 ML VIAL IV ONE (09:34)
[2024-12-01] MEDS ORDERED: MIDAZOLAM 2 MG/2 ML VIAL ONE (09:34)
[2024-12-01] MEDS: ceFAZolin 3 GM in SODIUM CHLORIDE 0.9% 100 ML IVPB PRN (09:39)
--- NOTE | 2024-12-01 12:57 | P.BCAON ---
Date of Procedure: 12/01/24 Preoperative Diagnosis: Right breast invasive ductal carcinoma stage I Postoperative Diagnosis: Same Procedure(s) Performed: Right breast sentinel node biopsy, injection methylene blue to nikko tumor location in the breast, needle localization lumpectomy right breast, reduction mammoplasty right breast Anesthesia: MARNIEA Surgeon: Anila Ocampo Estimated Blood Loss (ml): 50 IV fluids (ml): 1,600 Condition: other (Right breast tissue, right sentinel node) Disposition: same day Indications for Procedure: Biopsy-proven right breast invasive ductal carcinoma Operative Findings: Radiograph of specimen reveals right breast tumor with marker clip in place Description of Procedure: The patient was first seen in the radiology department. Needle localization of the tumor in the right breast was performed. At the time of needle localization 2 cc of methylene blue were injected into the needle and radiology to nikko the area in the breast. Additionally radiotracer was injected in the periareolar region. The patient was brought to the operative suite. Following induction of anesthesia the neoprobe was used to interrogate the axilla. Radioactivity was identified in the axilla. The right breast and axilla were prepped and draped in a sterile fashion. The area of the axilla was approached initially. Using the neoprobe the area of greatest radioactivity was identified. An incision was made and carried down to the axillary tissue. The radioactive lymph node was identified and grasped using an Allis clamp. This was excised. The 10-second count was 23,524. And it additional scan of the axilla revealed additional radioactivity in the tissue was grasped and resected using the harmonic scalpel. A small lymph node was identified. The 10-second count was 1267. The background axillary count was 19 at 10 seconds. The wound was irrigated. After reassured that hemostasis was attained the deep tissues were closed using 3-0 Vicryl suture. The skin was closed using 4-0 Monocryl. The area of the breast was approached. Markings had been placed in the preoperative area for a reduction mammoplasty incision. Using the medial limb of the reduction incision the breast tissue was elevated. Dissection was performed to the shaft of the localizing needle. The surrounding tissue was excised. The area of tissue excised was approximately 5 x 6 cm. The blue discolored tissue was resected in the specimen. The specimen was painted for orientation. Radiograph of the specimen revealed the tumor as well as the marking clip and the wire. Anteriorly dissection was directly under the subcutaneous tissue. Posterior dissection was to the area of the pectoralis muscle. Titanium marking clips were placed. The Carrera pattern markings were used to develop the medial and lateral skin flaps. The pedicle for the inferior pedicle mammoplasty was de-epithelialized. The horseshoe shaped tissue from medial to lateral coming superior to the pedicle was removed. The weight of this tissue was approximately 3.3 pounds. After reassured that hemostasis was attained the wound was well irrigated. A SEVEN drain was placed in the lateral aspect of the dissection. #42 cookie cutter was utilized when the area of than for the new areola was marked on the areolar tissue. After reassured that hemostasis was attained Surgicel in powder form was placed. The pedicle was secured in place using interrupted 3-0 Vicryl suture. The flaps were brought together using interrupted 3-0 Vicryl suture. This was followed by running 3-0 Vicryl suture. This was followed by 4-0 Monocryl subcuticular suture. The #42 cookie cutter was used to make an incision where the nipple was to be matured. The skin and subcutaneous tissue were resected from this area. The nipple and areolar area were brought into this incision. They were secured using interrupted 3-0 Vicryl sutures followed by 3-0 running Vicryl suture and 4-0 subcuticular suture. 20 cc of 1% lidocaine was used to anesthetize the area of the incision. Surg ical glue was placed. Sterile dressing was placed. All instrument and sponge counts were correct at the end of the case. The patient tolerated the procedure in stable condition. - Sentinal Node Biopsy Operation performed with curative intent: Yes Tracer(s) used in upfront surgery (non-neoadjuvant): radioactive tracer All nodes present at end of dye-filled channel removed: N/A All significantly radioactive nodes were removed: Yes All palpably suspicious nodes were removed: Yes
--- NOTE | 2024-12-01 12:58 | P.DS ---
Providers Attending physician: Anila Ocampo Primary care physician: Guillermo Mejia Plan - Discharge Summary Discharge Rx Participant: No New Discharge Prescriptions: New oxyCODONE HCL [OxyIR] 5 mg PO Q6H PRN 3 Days #14 tab PRN Reason: pain No Action Venlafaxine HCl [Effexor] 150 mg PO QAM Ibuprofen [Motrin Ib] 400 - 800 mg PO Q8H PRN PRN Reason: Pain Lisinopril-Hctz 20-12.5 mg [Zestoretic 20-12.5] 1 tab PO DAILY Cariprazine HCl [Vraylar] 4.5 mg PO QAM hydrOXYzine HCL [Hydroxyzine HCl] 25 mg PO DAILY PRN PRN Reason: Anxiety amLODIPine [Norvasc] 5 mg PO QAM Amoxicillin 875 mg PO Q12HR Discharge Medication List Venlafaxine HCl [Effexor] 150 mg PO QAM 02/09/16 [History] Ibuprofen [Motrin Ib] 400 - 800 mg PO Q8H PRN 03/16/20 [History] Lisinopril-Hctz 20-12.5 mg [Zestoretic 20-12.5] 1 tab PO DAILY 03/17/20 [History] Cariprazine HCl [Vraylar] 4.5 mg PO QAM 07/16/24 [History] amLODIPine [Norvasc] 5 mg PO QAM 07/16/24 [History] hydrOXYzine HCL [Hydroxyzine HCl] 25 mg PO DAILY PRN 11/26/24 [History] Amoxicillin 875 mg PO Q12HR 12/01/24 [History] oxyCODONE HCL [OxyIR] 5 mg PO Q6H PRN 3 Days #14 tab 12/01/24 [Rx] Follow up Appointment(s)/Referral(s): Anila Ocampo MD [STAFF PHYSICIAN] - 12/10/24 12:00 pm Activity/Diet/Wound Care/Special Instructions: Wear bra at all times Teach drain care, drain and record every shift and as needed May shower after 48 hours Discharge Disposition: HOME SELF-CARE
[2024-12-01 15:14] VITALS: RESP 16
[2024-12-01 15:15] VITALS: BP 120/69; PULSE 97
--- NOTE | 2024-12-01 15:37 | NM ---
EXAMINATION TYPE: NM sentinel node injection DATE OF EXAM: 12/01/2024 COMPARISON: NONE CLINICAL INDICATION: Female, 54 years old with history of C50.211 Breast Cancer; TECHNIQUE AND FINDINGS: The procedure of sentinel lymph node injection was explained to the patient. The benefits, alternatives, and risks were discussed. An informed consent was then obtained. Overlying skin is cleaned with sterile alcohol. Following this, 530 uCi Tc99m Tilmanocept was inject ed in the upper outer aspect of the right nipple intradermally. The patient tolerated the procedure well without any immediate complication. The patient was kept in the radiology department for short stay after the procedure and then taken to surgery for surgical p rocedure what is presumed intraoperative gamma probe will be used for sentinel lymph node detection. IMPRESSION: Right breast radiotracer injection for sentinel node localization as above. [facility], , 12/01/2024 3:34 PM
== END 2024-12-01 16:05 | disposition home or self-care (01) ==
LOC: OR 07:12
PROVIDERS: ATTEND Surgery
DX: C50.211 Malignant neoplasm of upper-inner quadrant of right female breast (principal); I10 Essential (primary) hypertension; G47.30 Sleep apnea, unspecified; F17.210 Nicotine dependence, cigarettes, uncomplicated
CPT/HCPCS: 88305; 88342; 88307; 88341; 76098; 19281; 38792; 19318; C1819; A9520; J2250; J0330; J1644; J1100; J0690; J2405; J2003; J3010; J1171; J2704; Q9968; J2371

== ENCOUNTER → 2024-12-10 | Outpatient (CLI) | payer BC ==
[2024-12-10 13:02] VITALS: BP 155/82; PULSE 100; RESP 18; TEMP 98.6
--- NOTE | 2024-12-10 13:19 | P.BCPO ---
Progress Note - Text Progress Note Date: 12/10/24 Kellen is status post a right breast lumpecoty and SNB via a mammoplasty approach on 12-01-24. Her pathology revealed a 3 cm tumor margins (-0, 3 nodes (- ). She is doing well postoperatively. She does have some drainage minimally around the drain site and the drain was stripped and it is still working. She is putting approximately 30 cc a day from the drain. She has some mild fluctuance in the medial aspect of the breast and aspiration was recommended and 60 cc of dark/thin seroma fluid was obtained with resolution of the seroma. lungs: Clear Heart: Regular rate and rhythm Incisions clean and dry minimal erythema at the lower aspect of the wounds Mild necrosis in the periareolar region medially Impression: Doing well status post right breast lumpectomy and sentinel node biopsy Plan: Keflex secondary to mild erythema of the lower aspect of the wound Will leave the drain in until next week Appointment with medical oncology Appointment with radiation oncology Post Op Education - Post Op Education Post Op Education Provided Date: 12/10/24 - Functional Assessment Performed?: Yes Referal Provided?: No Path Report - Was patient given path report? Path Report Date Given: 12/10/24
== END ==
LOC: WWCWWP 12:00
PROVIDERS: ATTEND Surgery
DX: Z90.11 Acquired absence of right breast and nipple (principal); Z88.5 Allergy status to narcotic agent; Z91.02 Food additives allergy status; F17.210 Nicotine dependence, cigarettes, uncomplicated

== ENCOUNTER → 2024-12-15 | Outpatient (CLI) | payer BC ==
[2024-12-15 08:04] VITALS: BP 130/83; PULSE 83; RESP 17; TEMP 97.1
--- NOTE | 2024-12-15 08:28 | P.PN ---
Subjective Progress Note Date: 12/15/24 The area of concern in the right breast was prepped using. An 18-gauge needle on a 20 cc syringe was inserted into the area of fluctuance and 3 cc of dark/thin seroma fluid was aspirated with complete resolution of the seroma. The patient tolerated this without difficulty. This was done after informed consent was obtained. Original Note: Progress Note - Text Progress Note Date: 12/15/24 Kellen is status post a right breast lumpectomy and SNB via a mammoplasty approach on 12-01-24. Her pathology revealed a 3 cm tumor margins (-0, 3 nodes (- ). She has minimal drainage from the drain at this time. Erythema has resolved. 12-10-24 60 cc seroma fluid aspirated lungs: Clear Heart: Regular rate and rhythm Incisions clean and dry minimal erythema at the lower aspect of the wounds resolved Mild necrosis in the periareolar region medially scabbing at this time Impression: Doing well status post right breast lumpectomy and sentinel node biopsy Plan: DC drain Appointment with medical oncology Appointment with radiation oncology follow up in two weeks Objective - Vital Signs Vital signs: Vital Signs Temp 97.1 F L 12/15/24 08:01 Pulse 83 12/15/24 08:01 Resp 17 12/15/24 08:01 BP 130/83 12/15/24 08:01 Pulse Ox 96 12/15/24 08:01 FiO2 Intake & Output 12/14/24 12/15/24 12/15/24 18:59 06:59 18:59 Weight 163.293 kg
== END ==
LOC: WWCWWP 07:54
PROVIDERS: ATTEND Surgery
DX: Z98.890 Other specified postprocedural states (principal); F17.210 Nicotine dependence, cigarettes, uncomplicated; Z88.5 Allergy status to narcotic agent; Z91.018 Allergy to other foods

== ENCOUNTER → 2024-12-31 | Outpatient (CLI) | payer BC ==
--- NOTE | 2024-12-31 07:58 | P.PN ---
Subjective Progress Note Date: 12/31/24 Progress Note - Text Progress Note Date: 12-31-24 Kellen is status post a right breast lumpectomy and SNB via a mammoplasty approach on 12-01-24. Her pathology revealed a 3 cm tumor margins (-), 3 nodes (- ). She has minimal drainage from the drain at this time. Erythema has resolved. 12-10-24 60 cc seroma fluid aspirated lungs: Clear Heart: Regular rate and rhythm Incisions clean and dry minimal erythema at the lower aspect of the wounds resolved Mild necrosis in the periareolar region medially scabbing at this time, healing well, no seroma at this time review note medical oncology: oncotype 11; no chemotherapy will recommend endocrine therapy after radiation Impression: Doing well status post right breast lumpectomy and sentinel node biopsy Plan: Appointment with medical oncology, on December 16, she will have hormone therapy and another appointment scheduled after radiation Appointment with radiation oncology will see them next week follow up in 4 months
[2024-12-31 08:09] VITALS: BP 144/84; PULSE 86; RESP 16; TEMP 97.9
== END ==
LOC: WWCWWP 07:32
PROVIDERS: ATTEND Surgery
DX: D05.10 Intraductal carcinoma in situ of unspecified breast (principal); F17.200 Nicotine dependence, unspecified, uncomplicated; Z98.890 Other specified postprocedural states; Z98.82 Breast implant status; Z88.5 Allergy status to narcotic agent; Z88.8 Allergy status to other drugs, medicaments and biological substances

== ENCOUNTER 2025-01-10 21:35 | Observation (INO) | payer BC ==
--- NOTE | 2025-01-10 22:25 | ED ---
General Adult HPI - General Chief complaint: Skin/Abscess/Foreign Body Stated complaint: post op complication Time Seen by Provider: 01/10/25 21:46 Source: patient Mode of arrival: ambulatory Limitations: no limitations - History of Present Illness Initial comments: Kellen is a pleasant 54-year-old female who presents the ER today for evaluation of possible wound infection. Patient underwent lumpectomy and breast reduction of the right due to cancerous tumor 5 weeks ago. Patient followed up with Dr. Jeff Young a week ago and was doing well she states that over that time she has developed breast which she attributed to irritation due to her bra was fitting irregularly. Patient states that today she showered and when she got a shower she noticed a Yellow-brownish drainage from the inferior side of her breast and noted there seem to be an opening in the incision. This prompted her to come to the ER for evaluation. Patient does note some worsening tenderness in that area but no fevers chills or signs of systemic illness. - Related Data Home Medications Medication Instructions Recorded Confirmed Venlafaxine HCl [Effexor] 150 mg PO QAM 02/09/16 12/31/24 Ibuprofen [Motrin Ib] 400 - 800 mg PO Q8H PRN 03/16/20 12/31/24 Lisinopril-Hctz 20-12.5 mg 1 tab PO DAILY 03/17/20 12/31/24 [Zestoretic 20-12.5] Cariprazine HCl [Vraylar] 4.5 mg PO QAM 07/16/24 12/31/24 amLODIPine [Norvasc] 5 mg PO QAM 07/16/24 12/31/24 hydrOXYzine HCL [Hydroxyzine HCl] 25 mg PO DAILY PRN 11/26/24 12/31/24 Previous Rx's Medication Instructions Recorded Cephalexin [Keflex] 500 mg PO Q6HR 1 Days #20 cap 12/10/24 Allergies Allergy/AdvReac Type Severity Reaction Status Date / Time codeine Allergy Intermediate Nausea & Verified 01/10/25 21:39 Vomiting aspartame AdvReac Mild Glands Verified 01/10/25 21:39 swell at base of skull morphine AdvReac Itching Verified 01/10/25 21:39 Review of Systems ROS Statement: Those systems with pertinent positive or pertinent negative responses have been documented in the HPI. ROS Other: All systems not noted in ROS Statement are negative. Past Medical History Past Medical History: Cancer, Hypertension, Sleep Apnea/CPAP/BIPAP Additional Past Medical History / Comment(s): uses cpap depression, mild anemia resolved with hysterectomy, right breast ca History of Any Multi-Drug Resistant Organisms: None Reported Past Surgical History: Breast Surgery, Hysterectomy, Orthopedic Surgery Additional Past Surgical History / Comment(s): ovarian cyst, cervix biopsy, repair radial fracture in right foot, lateral release of right knee, right breast + needle bx Past Anesthesia/Blood Transfusion Reactions: No Reported Reaction, Family History of Problems w/ Anesthesia Additional Past Anesthesia/Blood Transfusion Reaction / Comment(s): mother had a "weird reaction to anesthesia with hallucinations and delusions"; dad had hard time coming out of anesthesia. no hx blood transfusion Past Psychological History: Depression Smoking Status: Current every day smoker Past Alcohol Use History: Occasional Past Drug Use History: None Reported - Past Family History Mother Family Medical History: Cancer, Dementia, Eye Disorder, Hypertension, Thyroid Disorder Additional Family Medical History / Comment(s): skin cancer, ovarian cysts, cataracts Father Family Medical History: Dementia, Eye Disorder, Hyperlipidemia, Hypertension, Thyroid Disorder Additional Family Medical History / Comment(s): Parkinson's, glaucoma, macular degeneration General Exam - General Exam Comments Initial Comments: Physical Exam GENERAL: Patient is well-developed and well-nourished. Patient is nontoxic and well-hydrated and is in no distress. HENT: Normocephalic, Atraumatic. EYES: PERRL, EOMI PULMONARY: Unlabored respirations. CARDIOVASCULAR: RRR Warm and well perfused extremities ABDOMEN: Non-distended SKIN: Right breast with surgical incision noted well-healing aside from central part of the incision has approximately 7 mm opening with serosanguineous drainage. The entire breast is red and edematous. : Deferred NEUROLOGIC: Alert and oriented Normal speech Normal gait MUSCULOSKELETAL: Moving all extremities with no apparent injury PSYCHIATRIC: No SI/HI Limitations: no limitations Course Vital Signs 01/10/25 21:36 Temperature 98.3 F Pulse Rate 84 Respiratory 18 Rate Blood Pressure 117/82 O2 Sat by Pulse 96 Oximetry Medical Decision Making - Medical Decision Making Was pt. sent in by a medical professional or institution (, PA, FINISHING TRIMMER, urgent care, hospital, or senior living...) When possible be specific @ -No Did you speak to anyone other than the patient for history (EMS, parent, family, police, friend...)? What history was obtained from this source @ -No Did you review nursing and triage notes (agree or disagree)? Why? @ -I reviewed and agree with nursing and triage notes Were old charts reviewed (outside hosp., previous admission, EMS record, old EKG, old radiological studies, urgent care reports/EKG's, senior living records)? Report findings @ -Operative note reviewed Differential Diagnosis (chest pain, altered mental status, abdominal pain women, abdominal pain men, vaginal bleeding, weakness, fever, dyspnea, syncope, headache, dizziness, GI bleed, back pain, seizure, CVA, palpatations, mental health)? @ -Differential includes cellulitis, abscess, lymphedema EKG interpreted by me (3pts min.). @ -As above X-rays interpreted by me (1pt min.). @ -None done CT interpreted by me (1pt min.). @ -None done U/S interpreted by me (1pt. min.). @ -Fluid collection in breast What testing was considered but not performed or refused? (CT, X-rays, U/S, labs)? Why? @ -None What meds were considered but not given or refused? Why? @ -None Did you discuss the management of the patient with other professionals (professionals i.e. , PA, FINISHING TRIMMER, lab, RT, psych nurse, certified social workers in health care, slusher operator, teacher, chief strategy officer, case reviewer)? Give summary @ -With admitting physician Was smoking cessation discussed for >3mins.? @ -No Was critical care preformed (if so, how long)? @ -No Were there social determinants of health that impacted care today? How? (Homelessness, low income, unemployed, alcoholism, drug addiction, transportation, low edu. Level, literacy, decrease access to med. care, shelter, rehab)? @ -No Was there de-escalation of care discussed even if they declined (Discuss DNR or withdrawal of care, Hospice)? DNR status @ -No What co-morbidities impacted this encounter? (DM, HTN, Smoking, COPD, CAD, Cancer, CVA, ARF, Chemo, Hep., AIDS, mental health diagnosis, sleep apnea, morbid obesity)? @ -Breast cancer Was patient admitted / discharged? Hospital course, mention meds given and route, prescriptions, significant lab abnormalities, going to OR and other pertinent info. @ -Admit Patient was seen and evaluated history is obtained from patient. Physical exam is concerning for cellulitis of the entire breast but given the recent surgery ultrasound will be performed to rule out abscess. Labs were obtained including inflammatory markers and blood cultures. White count is not elevated but inflammatory marker CRP is significantly elevated. Ultrasound suggestive of possible abscess, given physical exam, elevated inflammatory markers and ultrasound findings we will treat with IV antibiotics and plan for admission w ith a consult to breast surgeon. Undiagnosed new problem with uncertain prognosis? @ -No Drug Therapy requiring intensive monitoring for toxicity (Heparin, Nitro, Insulin, Cardizem)? @ -No Were any procedures done? @ -No Diagnosis/symptom? @ -Postoperative breast abscess Acute, or Chronic, or Acute on Chronic? @ -Acute Uncomplicated (without systemic symptoms) or Complicated (systemic symptoms)? @ -Uncomplicated Side effects of treatment? @ -No Exacerbation, Progression, or Severe Exacerbation? @ -No Poses a threat to life or bodily function? How? (Chest pain, [place], [place], pneumonia, PE, COPD, DKA, ARF, appy, cholecystitis, CVA, Diverticulitis, Homicidal, Suicidal, threat to staff... and all critical care pts) @ -No - Lab Data Result diagrams: 01/10/25 22:30 01/10/25 22:30 Lab Results 01/10/25 01/10/25 01/10/25 Range/Units 22:30 22:30 22:30 WBC 9.21 (4.50-10.00) 10*3/uL RBC 4.13 (4.10-5.20) 10*6/uL Hgb 11.6 L (12.0-15.0) g/dL Hct 34.9 L (37.2-46.3) % MCV 84.5 (80.0-97.0) fL MCH 28.1 (27.0-32.0) pg MCHC 33.2 (32.0-37.0) g/dL Plt Count 317 (140-440) 10*3/uL MPV 9.8 (9.5-12.2) fL Immature Gran % (Auto) 0.8 % Neutrophils % 56.0 % Lymphocytes % 30.6 % Monocytes % 6.7 % Eosinophils % 5.1 % Basophils % 0.8 % Immature Gran # 0.07 H (0.00-0.04) 10*3/uL Neutrophils # 5.16 (1.80-7.70) 10*3/uL Lymphocytes # 2.82 (0.90-5.00) 10*3/uL Monocytes # 0.62 (0.20-1.00) 10*3/uL Eosinophils # 0.47 H (0.04-0.35) 10*3/uL Basophils # 0.07 (0.00-0.10) 10*3/uL PT 10.6 (10.0-12.5) sec INR 0.9 (<1.2) APTT 22.5 (22.0-30.0) sec Sodium 136 L (137-145) mmol/L Potassium 3.5 (3.5-5.1) mmol/L Chloride 101 (98-107) mmol/L Carbon Dioxide 25 (22-30) mmol/L Anion Gap 10 mmol/L BUN 15 (7-17) mg/dL Creatinine 1.05 H (0.52-1.04) mg/dL Est GFR (CKD-EPI)AfAm 69 (>60 ml/min/1.73 sqM) Est GFR (CKD-EPI)NonAf 60 (>60 ml/min/1.73 sqM) Glucose 123 H (74-99) mg/dL Plasma Lactic Acid Tomy (0.7-2.0) mmol/L Calcium 9.6 (8.4-10.2) mg/dL Total Bilirubin 0.5 (0.2-1.3) mg/dL AST 34 (14-36) U/L ALT 50 H (4-34) U/L Alkaline Phosphatase 186 H (38-126) U/L C-Reactive Protein 5.8 H (<1.0) mg/dL Total Protein 6.6 (6.3-8.2) g/dL Albumin 4.0 (3.5-5.0) g/dL 01/10/25 Range/Units 22:30 WBC (4.50-10.00) 10*3/uL RBC (4.10-5.20) 10*6/uL Hgb (12.0-15.0) g/dL Hct (37.2-46.3) % MCV (80.0-97.0) fL MCH (27.0-32.0) pg MCHC (32.0-37.0) g/dL Plt Count (140-440) 10*3/uL MPV (9.5-12.2) fL Immature Gran % (Auto) % Neutrophils % % Lymphocytes % % Monocytes % % Eosinophils % % Basophils % % Immature Gran # (0.00-0.04) 10*3/uL Neutrophils # (1.80-7.70) 10*3/uL Lymphocytes # (0.90-5.00) 10*3/uL Monocytes # (0.20-1.00) 10*3/uL Eosinophils # (0.04-0.35) 10*3/uL Basophils # (0.00-0.10) 10*3/uL PT (10.0-12.5) sec INR (<1.2) APTT (22.0-30.0) sec Sodium (137-145) mmol/L Potassium (3.5-5.1) mmol/L Chloride (98-107) mmol/L Carbon Dioxide (22-30) mmol/L Anion Gap mmol/L BUN (7-17) mg/dL Creatinine (0.52-1.04) mg/dL Est GFR (CKD-EPI)AfAm (>60 ml/min/1.73 sqM) Est GFR (CKD-EPI)NonAf (>60 ml/min/1.73 sqM) Glucose (74-99) mg/dL Plasma Lactic Acid Tomy 1.6 (0.7-2.0) mmol/L Calcium (8.4-10.2) mg/dL Total Bilirubin (0.2-1.3) mg/dL AST (14-36) U/L ALT (4-34) U/L Alkaline Phosphatase (38-126) U/L C-Reactive Protein (<1.0) mg/dL Total Protein (6.3-8.2) g/dL Albumin (3.5-5.0) g/dL Disposition Clinical Impression: Breast abscess Disposition: ADMITTED IP TO THIS HOSP Condition: Stable Is patient prescribed a controlled substance at d/c from ED?: No Referrals: Víctor Mejia MD [Primary Care Provider] - 1-2 days
[2025-01-10 22:43] LABS: Basophils # (A) 0.07 10*3/uL (0.00-0.10); Basophils % (A) 0.8 %; Eosinophils # (A) 0.47 10*3/uL (0.04-0.35); Eosinophils % (A) 5.1 %; HCT 34.9 % (37.2-46.3); HGB 11.6 g/dL (12.0-15.0); Lymphocytes # (A) 2.82 10*3/uL (0.90-5.00); Lymphocytes % (A) 30.6 %; MCH 28.1 pg (27.0-32.0); MCHC 33.2 g/dL (32.0-37.0); MCV 84.5 fL (80.0-97.0); Mean Platelet Volume 9.8 fL (9.5-12.2); Monocytes # (A) 0.62 10*3/uL (0.20-1.00); Monocytes % (A) 6.7 %; Neutrophils # (A) 5.16 10*3/uL (1.80-7.70); Platelet Count 317 10*3/uL (140-440); RBC 4.13 10*6/uL (4.10-5.20); RDW 13.6 % (11.5-14.5); WBC 9.21 10*3/uL (4.50-10.00)
[2025-01-10 22:55] LABS: INR 0.9 (<1.2); Partial Thromboplastin Time 22.5 sec (22.0-30.0); Prothrombin Time 10.6 sec (10.0-12.5)
[2025-01-10 22:59] LABS: ALT 50 U/L (4-34); AST 34 U/L (14-36); African American GFR (CKD) 69 (>60 ml/min/1.73 sqM); Alkaline Phosphatase 186 U/L (38-126); Anion Gap 10 mmol/L; Blood Urea Nitrogen 15 mg/dL (7-17); C Reactive Protein 5.8 mg/dL (<1.0); Calcium 9.6 mg/dL (8.4-10.2); Carbon Dioxide 25 mmol/L (22-30); Chloride 101 mmol/L (98-107); Glucose 123 mg/dL (74-99); Non-African American GFR(CKD) 60 (>60 ml/min/1.73 sqM); Potassium 3.5 mmol/L (3.5-5.1); Sodium 136 mmol/L (137-145); Total Bilirubin 0.5 mg/dL (0.2-1.3); Total Protein 6.6 g/dL (6.3-8.2)
--- NOTE | 2025-01-10 23:30 | US ---
EXAM: US Right Breast, Limited CLINICAL HISTORY: ITS.REASON US Reason: post op infection evaluate for abscess TECHNIQUE: Limited real time ultrasound of the right breast with image documentation, including axilla when performed. COMPARISON: No previous studies FINDINGS: Right breast: Ultrasound imaging of the right lower quadrant of the breast, the area of concern at the 4 7 o'clock position, reveals a 7.0 x 2.4 x 0.5 cm complex thick-walled collection differential etiologies which includes abscess collection. Other etiologies cannot be excluded. Clinical correlation and correlation history are highly advised. IMPRESSION: 1. Complex cystic structure at the right breast which given the patient's history most likely represent an abscess collection. Other etiologies cannot be excluded. Close clinical correlation and follow-up are advised. MRI imaging of the breast with contrast administration may provide additional information. At the very least, follow-up imaging in 3 months is advised for reassessment. 2. birads: 3
[2025-01-10] MEDS ORDERED: VANCOMYCIN IV PER PHARMACY 1 EACH MISC MISCELLANE PRN (23:41)
[2025-01-11] MEDS: ceFAZolin 2 GM in DEXTROSE 5% IN WATER 50 ML IVPB SCH (00:07)
[2025-01-11] MEDS ORDERED: NALOXONE 0.4 MG/ML 1 ML VIAL IV PRN (00:11)
[2025-01-11] MEDS: VANCOMYCIN 2,250 MG in SODIUM CHLORIDE 0.9% 500 ML 500 ML IVPB ONE (01:35)
--- NOTE | 2025-01-11 01:50 | P.HPIM ---
History of Present Illness H&P Date: 01/10/25 54 year old female with recent diagnosis of breast cancer, hypertension , BRET patient underwent a right lumpectomy (LN dissection was negative ) and breast reduction about 5 weeks ago , she was healing well, however, she noticed some firmness around the wound which progressed to erythema and worsening pain , and today noticed yellowish drainage from the wound of right breast while taking a shower. she denies any systemic symptoms , denies any fever, chills. she has not received chemo, and has not started on radiation yet, which is planned soon . review of systems Pertinent positives as noted in HPI. All other systems were reviewed and are negative on exam Constitutional: No acute distress, conversant, pleasant Eyes: Anicteric sclerae, moist conjunctiva, Pupils equal round reactive to light ENMT: NC/AT Oropharynx clear, no erythema, or exudates Neck: Supple, no masses, or JVD No carotid bruits No thyromegaly Lungs: Clear to auscultation Clear to percussion Normal respiratory effort, no accessory muscle use Cardiovascular: Heart regular in rate and rhythm, No murmurs, gallops, or rubs No peripheral edema Abdominal: Soft Nontender, no guarding, rebound or rigidity Abdomen moving with respiration Normoactive bowel sounds Skin: erythema and firmness around the wound of the right breast warm to the touch and tender, there is yellowish purulent drainage from an area of wound dehiscence of the right breast Psychiatric: Alert and oriented to person, place and time Appropriate affect fair judgement Neuro Muscles Strength 5/5 in all 4 extremities Sensation to light touch grossly present throughout Cranial nerves II-XII grossly intact assessment and plan 54 year old female with right breast cancer s/p lumpectomy 5 weeks ago , coming in due to worsening pain around her right breast wound and drainage I discussed the case with ED doc and I accepted the admission for post surgical wound infec tion post surgical wound surgery consult follow up cultures vancomycin dosing by pharmacy pain control with opiods tylenol for fever 650 mg Q6hr prn no fever, no leukocytosis WBC 9.2 renal function unremarkable Na 136 K 3.5 BUN 15 cr 1.05 breast US showed complex cystic structure at the right breast which is suspicious of abscess collection hypertension resume home meds lisinopril , amlodipine BRET encourage to use cpap full code DVT PPX lovenox 40 mg sc daily Past Medical History Past Medical History: Cancer, Hypertension, Sleep Apnea/CPAP/BIPAP Additional Past Medical History / Comment(s): uses cpap depression, mild anemia resolved with hysterectomy, right breast ca History of Any Multi-Drug Resistant Organisms: None Reported Past Surgical History: Breast Surgery, Hysterectomy, Orthopedic Surgery Additional Past Surgical History / Comment(s): ovarian cyst, cervix biopsy, repair radial fracture in right foot, lateral release of right knee, right breast + needle bx Past Anesthesia/Blood Transfusion Reactions: No Reported Reaction, Family History of Problems w/ Anesthesia Additional Past Anesthesia/Blood Transfusion Reaction / Comment(s): mother had a "weird reaction to anesthesia with hallucinations and delusions"; dad had hard time coming out of anesthesia. no hx blood transfusion Past Psychological History: Depression Smoking Status: Current every day smoker Past Alcohol Use History: Occasional Past Drug Use History: None Reported - Past Family History Mother Family Medical History: Cancer, Dementia, Eye Disorder, Hypertension, Thyroid Disorder Additional Family Medical History / Comment(s): skin cancer, ovarian cysts, cataracts Father Family Medical History: Dementia, Eye Disorder, Hyperlipidemia, Hypertension, Thyroid Disorder Additional Family Medical History / Comment(s): Parkinson's, glaucoma, macular degeneration Medications and Allergies Home Medications Medication Instructions Recorded Confirmed Type Venlafaxine HCl [Effexor] 150 mg PO QAM 02/09/16 12/31/24 History Ibuprofen [Motrin Ib] 400 - 800 mg PO Q8H PRN 03/16/20 12/31/24 History Lisinopril-Hctz 20-12.5 mg 1 tab PO DAILY 03/17/20 12/31/24 History [Zestoretic 20-12.5] Cariprazine HCl [Vraylar] 4.5 mg PO QAM 07/16/24 12/31/24 History amLODIPine [Norvasc] 5 mg PO QAM 07/16/24 12/31/24 History hydrOXYzine HCL [Hydroxyzine HCl] 25 mg PO DAILY PRN 11/26/24 12/31/24 History Cephalexin [Keflex] 500 mg PO Q6HR 1 Days #20 cap 12/10/24 12/31/24 Rx Allergies Allergy/AdvReac Type Severity Reaction Status Date / Time codeine Allergy Intermediate Nausea & Verified 04/13/25 21:39 Vomiting aspartame AdvReac Mild Glands Verified 01/10/25 21:39 swell at base of skull morphine AdvReac Itching Verified 01/10/25 21:39 Physical Exam Vitals: Vital Signs Temp Pulse Resp BP Pulse Ox 01/10/25 21:36 98.3 F 84 18 117/82 96 Intake and Output 01/10/25 01/10/25 01/11/25 14:59 22:59 06:59 Other: Weight 156.489 kg Results CBC & Chem 7: 01/10/25 22:30 01/10/25 22:30 Labs: Abnormal Lab Results - Last 24 Hours (Table) 01/10/25 01/10/25 Range/Units 22:30 22:30 Hgb 11.6 L (12.0-15.0) g/dL Hct 34.9 L (37.2-46.3) % Immature Gran # 0.07 H (0.00-0.04) 10*3/uL Eosinophils # 0.47 H (0.04-0.35) 10*3/uL Sodium 136 L (137-145) mmol/L Creatinine 1.05 H (0.52-1.04) mg/dL Glucose 123 H (74-99) mg/dL ALT 50 H (4-34) U/L Alkaline Phosphatase 186 H (38-126) U/L C-Reactive Protein 5.8 H (<1.0) mg/dL
[2025-01-11] MEDS: SODIUM CHLORIDE 0.9% 1,000 ML IV SCH (03:17)
[2025-01-11] MEDS: amLODIPine 5 MG TAB PO SCH (07:42)
[2025-01-11] MEDS: LISINOPRIL-HCTZ 20-12.5 MG 1 EACH TAB PO SCH (07:42)
[2025-01-11] MEDS: ENOXAPARIN 40 MG/0.4 ML SYRINGE SQ SCH (07:43)
--- NOTE | 2025-01-11 15:42 | P.PN ---
Subjective Progress Note Date: 01/11/25 54 year old F with PMH of breast CA, HTN, BRET recently underwent right lumpectomy and breast reduction 5 weeks ago presents to the ED for erythema and yellow drainage from the right breast. In the ED she underwent extensive evaluation. BP 117/82, HR 82, T 98.3F, RR 18, 96% on RA. CBC, Coag panel, CMP significant for Hg 11.6, Hct 34.9, Na 136, Cr 1.05, glu 123, ALT 50, alk phos 186. Lactic acid 1.6. Procal 0.13. CRP 5.8. Breast US suggesting abscess.Patient started on Vancomycin and admitted for further workup and management. 01/11 Patient was seen and examined. No complaints. Continued drainage. General: toxic, no distress Derm: warm, dry Head: atraumatic, normocephalic, symmetric Mouth: no lip lesion, mucus membranes moist Cardiovascular: good distal perfusion in all 4 extremities Lungs: breathing comfortably, no accessory muscle use Ext: no gross muscle atrophy, no edema, no contractures Neuro: No focal neurologic deficits. Psych: Alert and oriented. Based on my assessment of this patient, this patient meets a high complexity level of care. Breast abscess: Continue Vancomycin dosed per pharmacy. Monitor trough and renal function. Follow wound culture. Surgery consulted. JONATAN: Decrease NS from 130 to 75 cc/hr. HTN: Lisinopril-HCTZ 20-12.5 mg PO QD. Amlodipine 5 mg PO QD. Breast CA: Follow Oncology in the outpatient setting. CODE STATUS: FULL CODE. DVT Prophylaxis: Lovenox SQ GI Prophylaxis: Designated medical POA if patient is not able to make medical decisions for themselves: I have reviewed the following mortgage consultant notes: I have reviewed the results of the following tests: I have ordered the following tests: Vanc trough. BMP in the AM. I have discussed the care of this patient with the following independent historian: Family at bedside. I have independently interpreted the following test below: I have discussed the management of this patient with the following physician: Objective - Vital Signs Vital signs: Vital Signs Temp 98.8 F 01/11/25 11:43 Pulse 70 01/11/25 11:43 Resp 16 01/11/25 11:43 BP 162/75 01/11/25 11:43 Pulse Ox 96 01/11/25 11:43 FiO2 Intake & Output 01/10/25 01/11/25 01/11/25 18:59 06:59 18:59 Intake Total 1560 Balance 1560 Weight 156.489 kg Intake: Oral 1560 Other: Voiding Method Toilet # Voids 1 5 # Bowel Movements 1 - Labs CBC & Chem 7: 01/10/25 22:30 01/10/25 22:30 Labs: Abnormal Lab Results - Last 24 Hours (Table) 01/10/25 01/10/25 Range/Units 22:30 22:30 Hgb 11.6 L (12.0-15.0) g/dL Hct 34.9 L (37.2-46.3) % Immature Gran # 0.07 H (0.00-0.04) 10*3/uL Eosinophils # 0.47 H (0.04-0.35) 10*3/uL Sodium 136 L (137-145) mmol/L Creatinine 1.05 H (0.52-1.04) mg/dL Glucose 123 H (74-99) mg/dL ALT 50 H (4-34) U/L Alkaline Phosphatase 186 H (38-126) U/L C-Reactive Protein 5.8 H (<1.0) mg/dL Microbiology - Last 24 Hours (Table) 01/10/25 22:30 Gram Stain - Preliminary Breast - Right
[2025-01-11] MEDS: VANCOMYCIN 2,250 MG in SODIUM CHLORIDE 0.9% 500 ML 500 ML IVPB SCH (17:14)
[2025-01-11] MEDS: ENOXAPARIN 60 MG/0.6 ML SYRINGE SQ SCH (20:57)
[2025-01-12 05:05] LABS: African American GFR (CKD) 76 (>60 ml/min/1.73 sqM); Non-African American GFR(CKD) 66 (>60 ml/min/1.73 sqM)
[2025-01-12 05:07] LABS: African American GFR (CKD) 74 (>60 ml/min/1.73 sqM); Anion Gap 3 mmol/L; Blood Urea Nitrogen 11 mg/dL (7-17); Calcium 8.9 mg/dL (8.4-10.2); Carbon Dioxide 29 mmol/L (22-30); Chloride 105 mmol/L (98-107); Glucose 124 mg/dL (74-99); Non-African American GFR(CKD) 64 (>60 ml/min/1.73 sqM); Sodium 137 mmol/L (137-145)
--- NOTE | 2025-01-12 09:30 | P.GSCN ---
History of Present Illness Consult date: 01/12/25 Reason for Consult: right breast drainage History of present illness: 01-12-25 History of Present Illness Consult date: 01-12-25 Reason for Consult: invasive ductal cancer right breast [id number]-G3 Requesting physician: Víctor Mejia History of present illness: Kellen is a 54 year old female seen in consultation for Dr. Mejia on regarding a biopsy proven right breast invasive ductal cancer at the two OClock position of the right breast. She had a bilateral mammogram on 08-18-24 which showed a lesion of 23 mm in the right breast, no lesions of concern in the left breast. This led to an ultrasound of the right breast and a biopsy of the area of concern on 09-28-24. Her biopsy was an invasive ductal cancer ER+, Pr+ Her2- G3 lesion on 09-28-24. Mammogram and ultrasound personally reviewed and discussed with Dr. Matthews from radiology. She did not feel any lumps masses or nodules of concern in either breast. She gets mammograms annually. She is not complaining of any nipple discharge or skin changes. She has not had any recent trauma or infection in the breast. She has never had any surgery on her breast. She wanted to have a right breast lumpectomy via a reduction mastopexy incision and SNB note medical oncology reviewed: 10-21-24: DR. Nash Ortega genetic testing done, results pending, oncotype 11, no chemotherapy; she was called and told (-) note radiation oncology 11-06-24 reviewed: remote history of ganglicytoma asked to follow with Dr. Mejia; post op radiation therapy; he said they would follow up on that after the breast surgery prior to her surgery on 12-01-24 she was diagnosed with a right ear infection. She underwent right breast lumpectomy and sentinel node biopsy on 12-01-24 via a reduction mammoplasty incision. The tumor was 3 cm with (-) margins and three nodes (-). post procedure her SEVEN drain ws removed about two weeks ago. She was doing well but developed some serous drainage from the lower left inferior incision site. She was seen in the emergency department and admitted for possible infected seroma. An ultrasound was performed which showed fluid present in the breast. caffiene: 24 oz /day nicotine: 1/2 PPD smoking for about 30 years chocolate: daily BCP: 6 months in her 's hormones: none Note Dr. 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; did MRI for a while and no longer followed; used to follow with in [place] (in her 's) sleep apnea HTN depression Social History: nicotine: as above alcohol: 3/4 drinks /week, spirits drugs: none Review of Systems - Constitutional Denies fever, Denies weight loss - EENT Eyes: denies blurred vision Ears: deny: decreased hearing, tinnitus Ears, nose, mouth and throat: Denies dysphagia - Breasts bilateral: as per HPI - Cardiovascular Denies chest pain, Denies shortness of breath - Respiratory Denies cough - Gastrointestinal Reports as per HPI - Genitourinary Genitourinary: Denies dysuria, Denies hematuria Menstruation: Reports post hysterectomy - Musculoskeletal Reports as per HPI - Integumentary Denies rash, Denies unusual bruising - Neurological Denies headaches, Denies syncope - Psychiatric Reports depression - Endocrine Reports as per HPI - Hematologic/Lymphatic Denies easy bleeding, Denies easy bruising - Allergic/Immunologic Reports as per HPI Past Medical History Past Medical History: Sleep Apnea/CPAP/BIPAP Additional Past Medical History / Comment(s): uses cpap depression, mild anemia resolved with hysterectomy History of Any Multi-Drug Resistant Organisms: None Reported Past Surgical History: Hysterectomy, Orthopedic Surgery Additional Past Surgical History / Comment(s): ovarian cyst, cervix biopsy, repair radial fracture in right foot. Lateral release of right knee Past Anesthesia/Blood Transfusion Reactions: No Reported Reaction Additional Past Anesthesia/Blood Transfusion Reaction / Comm: mother had a "weird reaction to anesthesia with hallucinations and delusions" Past Psychological History: Depression Smoking Status: Current every day smoker Past Alcohol Use History: Occasional Additional Past Alcohol Use History / Comment(s): Smoking < 1 ppd, sice 1989 Past Drug Use History: None Reported - Past Family History Mother Family Medical History: Cancer, Dementia, Eye Disorder, Hypertension, Thyroid Disorder Additional Family Medical History / Comment(s): skin cancer, ovarian cysts, cataracts Father Family Medical History: Hyperlipidemia, Hypertension Additional Family Medical History / Comment(s): Parkinson's Medications and Allergies Home Medications Medication Instructions Recorded Confirmed Type Venlafaxine HCl [Effexor] 150 mg PO QAM 02/09/16 10/09/24 History Ibuprofen [Motrin Ib] 400 - 800 mg PO Q8H PRN 03/16/20 10/09/24 History Lisinopril-Hctz 20-12.5 mg 1 tab PO DAILY 03/17/20 10/09/24 History [Zestoretic 20-12.5] Cariprazine HCl [Vraylar] 3 mg PO QAM 07/16/24 10/09/24 History amLODIPine [Norvasc] 5 mg PO QAM 07/16/24 10/09/24 History Allergies Allergy/AdvReac Type Severity Reaction Status Date / Time codeine Allergy Intermediate Nausea & Verified 10/09/24 08:43 Vomiting aspartame AdvReac Mild Glands Verified 10/09/24 08:43 swell at base of skull morphine AdvReac Itching Verified 10/09/24 08:43 Past Medical History Past Medical History: Cancer, Hypertension, Sleep Apnea/CPAP/BIPAP Additional Past Medical History / Comment(s): uses cpap depression, mild anemia resolved with hysterectomy, right breast ca History of Any Multi-Drug Resistant Organisms: None Reported Past Surgical History: Breast Surgery, Hysterectomy, Orthopedic Surgery Additional Past Surgical History / Comment(s): ovarian cyst, cervix biopsy, repair radial fracture in right foot, lateral release of right knee, right breast + needle bx Past Anesthesia/Blood Transfusion Reactions: No Reported Reaction, Family History of Problems w/ Anesthesia Additional Past Anesthesia/Blood Transfusion Reaction / Comm: mother had a "weird reaction to anesthesia with hallucinations and delusions"; dad had hard time coming out of anesthesia. no hx blood transfusion Smoking Status: Former smoker - Past Family History Mother Family Medical History: Cancer, Dementia, Eye Disorder, Hypertension, Thyroid Disorder Additional Family Medical History / Comment(s): skin cancer, ovarian cysts, cataracts Father Family Medical History: Dementia, Eye Disorder, Hyperlipidemia, Hypertension, Thyroid Disorder Additional Family Medical History / Comment(s): Parkinson's, glaucoma, macular degeneration Medications and Allergies Home Medications Medication Instructions Recorded Confirmed Type Lisinopril-Hctz 20-12.5 mg 1 tab PO DAILY 03/17/20 01/11/25 History [Zestoretic 20-12.5] amLODIPine [Norvasc] 5 mg PO DAILY 07/16/24 01/11/25 History hydrOXYzine HCL [Hydroxyzine HCl] 12.5 - 25 mg PO Q8H PRN 11/26/24 01/11/25 History Cariprazine HCl [Vraylar] 4.5 mg PO DAILY 01/11/25 01/11/25 History Venlafaxine HCl [Effexor XR] 150 mg PO DAILY 01/11/25 01/11/25 History Allergies Allergy/AdvReac Type Severity Reaction Status Date / Time codeine Allergy Intermediate Nausea & Verified 01/10/25 21:39 Vomiting aspartame AdvReac Mild Glands Verified 01/10/25 21:39 swell at base of skull morphine AdvReac Itching Verified 01/10/25 21:39 Surgical - Exam Vital Signs Temp Pulse Resp BP Pulse Ox 98.3 F 84 18 117/82 96 01/10/25 21:36 01/10/25 21:36 01/10/25 21:36 01/10/25 21:36 01/10/25 21:36 - General no distress - Eyes normal ocular movement - Neck trachea midline - Respiratory normal respiratory effort, clear to auscultation - Cardiovascular Rhythm: regular Heart Sounds: normal: S1, S2 - Abdomen Abdomen: soft - Neurologic no disoriented, no combative - Psychiatric oriented to time, oriented to person, oriented to place, speech is normal, memory intact Breast Exam: Bra: 46DDD right side status post reduction mammoplasty Inspection: Scars right breast from recent surgery Palpation: Right breast: Healing scars right breast from recent surgery some mild erythema at the lower aspect of the breast, at the inferior horizontal incision there is a small opening with some yellow serous drainage consistent with seroma fluid Right axilla: No adenopathy of concern Left breast: Multi positional exam no dominant masses or nodules of concern Left axilla: No adenopathy of concern Results - Labs 01/10/25 22:30 01/12/25 04:32 Abnormal Lab Results - Last 24 Hours (Table) 01/12/25 Range/Units 04:32 Glucose 124 H (74-99) mg/dL Microbiology - Last 24 Hours (Table) 01/10/25 22:30 Gram Stain - Preliminary Breast - Right Diabetes panel 01/12/25 01/12/25 Range/Units 04:32 04:32 Sodium 137 (137-145) mmol/L Potassium 4.0 (3.5-5.1) mmol/L Chloride 105 (98-107) mmol/L Carbon Dioxide 29 (22-30) mmol/L BUN 11 (7-17) mg/dL Creatinine 0.97 1.00 (0.52-1.04) mg/dL Glucose 124 H (74-99) mg/dL Calcium 8.9 (8.4-10.2) mg/dL Calcium panel 01/12/25 Range/Units 04:32 Calcium 8.9 (8.4-10.2) mg/dL Pituitary panel 01/12/25 01/12/25 Range/Units 04:32 04:32 Sodium 137 (137-145) mmol/L Potassium 4.0 (3.5-5.1) mmol/L Chloride 105 (98-107) mmol/L Carbon Dioxide 29 (22-30) mmol/L BUN 11 (7-17) mg/dL Creatinine 0.97 1.00 (0.52-1.04) mg/dL Glucose 124 H (74-99) mg/dL Calcium 8.9 (8.4-10.2) mg/dL Adrenal panel 01/12/25 01/12/25 Range/Units 04:32 04:32 Sodium 137 (137-145) mmol/L Potassium 4.0 (3.5-5.1) mmol/L Chloride 105 (98-107) mmol/L Carbon Dioxide 29 (22-30) mmol/L BUN 11 (7-17) mg/dL Creatinine 0.97 1.00 (0.52-1.04) mg/dL Glucose 124 H (74-99) mg/dL Calcium 8.9 (8.4-10.2) mg/dL - Imaging Additional studies: Ultrasound right breast reviewed and personally interpreted Assessment and Plan Assessment: Impression: Right breast invasive ductal carcinoma high-grade status post resection via reduction mammoplasty incision on 12 01 24 Seroma with some drainage from the breast No fever no pain in the breast Plan: Probing of the wound in the left breast IV antibiotics as per infectious disease, await cultures Following consent the area of concern in the right breast was prepped using chlorhexidine. A sterile Q-tip was inserted into the small opening in the medial inferior limb of the mammoplasty incision. Serous fluid was drained. The patient tolerated this without difficulty. At this time there is nothing which would warrant surgical drainage this appears to be a seroma which drained spontaneously. We will await cultures. I will continue to follow the patient with you. On the ultrasound there appeared to be some fronds of tissue which may be some fat necrosis but again at this time it does not appear that there is anything warranting surgical drainage.
[2025-01-12] MEDS: cefTRIAXone 2 GM in DEXTROSE 5% IN WATER 50 ML IVPB SCH (12:43)
[2025-01-12] MEDS: VENLAFAXINE HCL ER 150 MG CAP PO SCH (12:43)
--- NOTE | 2025-01-12 15:48 | P.PN ---
Subjective Progress Note Date: 01/12/25 54 year old F with PMH of breast CA, HTN, BRET recently underwent right lumpectomy and breast reduction 5 weeks ago presents to the ED for erythema and yellow drainage from the right breast. In the ED she underwent extensive evaluation. BP 117/82, HR 82, T 98.3F, RR 18, 96% on RA. CBC, Coag panel, CMP significant for Hg 11.6, Hct 34.9, Na 136, Cr 1.05, glu 123, ALT 50, alk phos 186. Lactic acid 1.6. Procal 0.13. CRP 5.8. Breast US suggesting abscess.Patient started on Vancomycin and admitted for further workup and management. 01/11 Patient was seen and examined. No complaints. Continued drainage. 01/12 Patient was seen and examined. No complaints. Antibiotics include Vancomycin and Cezfolin. Surgery recommends no surgical intervention. WCx growing Morganella morganii. BCx neg so far. BMP shows glu 124. General: toxic, no distress Derm: warm, dry Head: atraumatic, normocephalic, symmetric Mouth: no lip lesion, mucus membranes moist Cardiovascular: good distal perfusion in all 4 extremities Lungs: breathing comfortably, no accessory muscle use Ext: no gross muscle atrophy, no edema, no contractures Neuro: No focal neurologic deficits. Psych: Alert and oriented. Based on my assessment of this patient, this patient meets a high complexity level of care. Breast abscess: Change Vancomycin and Cefzolin to Rocephin 2g IV QD pending sensitivities. Follow final wound culture. Surgery on board. Likely CKD stage II: Continue NS at 75 cc/hr. HTN: Lisinopril-HCTZ 20-12.5 mg PO QD. Amlodipine 5 mg PO QD. Breast CA: Follow Oncology in the outpatient setting. CODE STATUS: FULL CODE. DVT Prophylaxis: Lovenox SQ GI Prophylaxis: Designated medical POA if patient is not able to make medical decisions for themselves: I have reviewed the following communications consultant notes: Surgery. I have reviewed the results of the following tests: BMP. I have ordered the following tests: I have discussed the care of this patient with the following independent historian: RADHA. I have independently interpreted the following test below: I have discussed the management of this patient with the following physician: Objective - Vital Signs Vital signs: Vital Signs Temp 98.1 F 01/12/25 11:39 Pulse 75 01/12/25 11:39 Resp 16 01/12/25 11:39 BP 176/82 01/12/25 11:39 Pulse Ox 96 01/12/25 11:39 FiO2 Intake & Output 01/11/25 01/12/25 01/12/25 18:59 06:59 18:59 Intake Total 1800 1980 Output Total 900 Balance 1800 1080 Intake: Oral 1800 1979 Output: Urine 900 Other: # Voids 5 1 # Bowel Movements 1 - Labs CBC & Chem 7: 01/10/25 22:30 01/12/25 04:32 Labs: Abnormal Lab Results - Last 24 Hours (Table) 01/12/25 Range/Units 04:32 Glucose 124 H (74-99) mg/dL Microbiology - Last 24 Hours (Table) 01/10/25 22:30 Blood Culture - Preliminary Blood 01/10/25 22:30 Gram Stain - Preliminary Breast - Right Wound Culture - Preliminary Morganella morganii
[2025-01-13 05:39] LABS: African American GFR (CKD) 79 (>60 ml/min/1.73 sqM); Non-African American GFR(CKD) 69 (>60 ml/min/1.73 sqM)
--- NOTE | 2025-01-13 09:37 | P.PN ---
Subjective Progress Note Date: 01/13/25 Principal diagnosis: right breast seroma/infection invasive ductal cancer right breast [id number]+Her2-G3 Requesting physician: Víctor Mejia History of present illness: Kellen is a 54 year old female seen in consultation for Dr. Mejia on 10-09-24 regarding a biopsy proven right breast invasive ductal cancer at the two OClock position of the right breast. She had a bilateral mammogram on 08-18-24 which showed a lesion of 23 mm in the right breast, no lesions of concern in the left breast. This led to an ultrasound of the right breast and a biopsy of the area of concern on 09-28-24. Her biopsy was an invasive ductal cancer ER+, Pr+ Her2- G3 lesion on 09-28-24. Mammogram and ultrasound personally reviewed and discussed with Dr. Matthews from radiology. She did not feel any lumps masses or nodules of concern in either breast. She gets mammograms annually. She is not complaining of any nipple discharge or skin changes. She has not had any recent trauma or infection in the breast. She has never had any surgery on her breast. She wanted to have a right breast lumpectomy via a reduction mastopexy incision and SNB note medical oncology reviewed: 10-21-24: DR. Nash Ortega genetic testing done, results pending, oncotype 11, no chemotherapy; she was called and told (-) note radiation oncology 11-06-24 reviewed: remote history of ganglicytoma asked to follow with Dr. Mejia; post op radiation therapy; he said they would follow up on that after the breast surgery prior to her surgery on 12-01-24 she was diagnosed with a right ear infection. She underwent right breast lumpectomy and sentinel node biopsy on 12-01-24 via a reduction mammoplasty incision. The tumor was 3 cm with (-) margins and three nodes (-). post procedure her SEVEN drain ws removed about two weeks ago. She was doing well but developed some serous drainage from the lower left inferior incision site. She was seen in the emergency department and admitted for possible infected seroma. An ultrasound was performed which showed fluid present in the breast. The patient is doing well at this time. She has had no more drainage from the incision site. The erythema has decreased. Cultures grew Morgnella Morganii. Objective - Vital Signs Vital signs: Vital Signs Temp 98.0 F 01/13/25 07:52 Pulse 63 01/13/25 07:52 Resp 17 01/13/25 07:52 BP 153/84 01/13/25 07:52 Pulse Ox 98 01/13/25 07:52 FiO2 Intake & Output 01/12/25 01/13/25 01/13/25 18:59 06:59 18:59 Intake Total 1980 240 Output Total 900 Balance 1080 240 Intake: Oral 1979 240 Output: Urine 900 Other: # Voids 1 - Constitutional General appearance: Present: cooperative - EENT Eyes: Present: EOMI ENT: Present: hearing grossly normal - Neck Neck: Present: normal ROM - Respiratory Respiratory: bilateral: CTA - Cardiovascular Rhythm: regular Heart sounds: normal: S1, S2 - Integumentary Integumentary Comment(s): Right breast: Incisions clean and dry No further drainage There is a small seroma medially by palpation Decreased erythema - Labs CBC & Chem 7: 01/10/25 22:30 01/13/25 04:21 Labs: Microbiology - Last 24 Hours (Table) 01/10/25 22:30 Gram Stain - Final Breast - Right Wound Culture - Final Morganella morganii 01/10/25 22:30 Blood Culture - Preliminary Blood Assessment and Plan Assessment: Impression: Right breast invasive ductal carcinoma high-grade status post resection via reduction mammoplasty incision on 12 01 24 Seroma with some drainage from the breast; drainage has stopped No fever no pain in the breast Cultures positive for Morganella Morganii Plan: Await consult infectious disease Consider if wound should be opened and packed secondary to persistent seroma IV antibiotics as per infectious disease Infectious disease consult
--- NOTE | 2025-01-13 14:28 | P.PN ---
Subjective Progress Note Date: 01/13/25 54 year old F with PMH of breast CA, HTN, BRET recently underwent right lumpectomy and breast reduction 5 weeks ago presents to the ED for erythema and yellow drainage from the right breast. In the ED she underwent extensive evaluation. BP 117/82, HR 82, T 98.3F, RR 18, 96% on RA. CBC, Coag panel, CMP significant for Hg 11.6, Hct 34.9, Na 136, Cr 1.05, glu 123, ALT 50, alk phos 186. Lactic acid 1.6. Procal 0.13. CRP 5.8. Breast US suggesting abscess.Patient started on Vancomycin and admitted for further workup and management. 01/11 Patient was seen and examined. No complaints. Continued drainage. 01/12 Patient was seen and examined. No complaints. Antibiotics include Vancomycin and Cezfolin. Surgery recommends no surgical intervention. WCx growing Morganella morganii. BCx neg so far. BMP shows glu 124. 01/13 Patient was seen and examined. Feeling tired. Antibiotics include Rocephin 2g IV QD. Surgery recommending ID consult and possible bedside I&D tomorrow. Renal function shows GFR 69. General: toxic, no distress Derm: warm, dry Head: atraumatic, normocephalic, symmetric Mouth: no lip lesion, mucus membranes moist Cardiovascular: good distal perfusion in all 4 extremities Lungs: breathing comfortably, no accessory muscle use Ext: no gross muscle atrophy, no edema, no contractures Neuro: No focal neurologic deficits. Psych: Alert and oriented. Based on my assessment of this patient, this patient meets a high complexity level of care. Breast abscess: Rocephin 2g IV QD. ID consulted, discussed with Dr. David recommending patient stay for I&D tomorrow. Surgery on board. Likely CKD stage II: Continue NS at 75 cc/hr. HTN: BP 138/72. Lisinopril-HCTZ 20-12.5 mg PO QD. Amlodipine 5 mg PO QD. Breast CA: Follow Oncology in the outpatient setting. CODE STATUS: FULL CODE. DVT Prophylaxis: Lovenox SQ GI Prophylaxis: Designated medical POA if patient is not able to make medical decisions for themselves: I have reviewed the following spa consultant notes: Surgery. I have reviewed the results of the following tests: Renal function. WCx I have ordered the following tests: I have discussed the care of this patient with the following independent historian: RN. I have independently interpreted the following test below: I have discussed the management of this patient with the following physician: Dr. David. Objective - Vital Signs Vital signs: Vital Signs Temp 98.2 F 01/13/25 11:44 Pulse 69 01/13/25 11:44 Resp 16 01/13/25 11:44 BP 138/72 01/13/25 11:44 Pulse Ox 95 01/13/25 11:44 FiO2 Intake & Output 01/12/25 01/13/25 01/13/25 18:59 06:59 18:59 Intake Total 1979 2039 Output Total 900 Balance 1079 2039 Intake: Oral 1979 2039 Output: Urine 900 Other: Voiding Method Toilet # Voids 1 5 # Bowel Movements 1 - Labs CBC & Chem 7: 01/10/25 22:30 01/13/25 04:21 Labs: Microbiology - Last 24 Hours (Table) 01/10/25 22:30 Blood Culture - Preliminary Blood 01/10/25 22:30 Gram Stain - Final Breast - Right Wound Culture - Final Morganella morganii
[2025-01-13] MEDS: ACETAMINOPHEN TAB 325 MG TAB PO PRN (19:43)
--- NOTE | 2025-01-13 22:56 | P.CONS ---
History of Present Illness - Reason for Consult Consult date: 01/13/25 Right breast wound culture Requesting physician: Anila Ocampo - Chief Complaint Right breast pain swelling and drainage x days - History of Present Illness Patient is a 54-year-old female with a past medical history significant for hypertension sleep apnea recent diagnosis of right breast cancer in this patient status post right breast lumpectomy while radiation mastopexy incision about 5 weeks ago patient subsequently noticed to having increasing fu llness to the incision area with development of erythema and worsening pain describing to be to sharp moderate intensity and notes to having yellowish drainage from the wound of the right breast daily for the patient presented to hospital about 3 days ago patient on presentation to the hospital was afebrile and no fever have been called subsequently patient was not tachycardic hypotensive or hypoxic she did have white count 9.2 on admission creatinine 0.94 electrolyte has been normal CRP is elevated culture grew Morganella Morgani. Patient has been treated with Rocephin infectious disease was consulted today for further management of antibiotic therapy and possible plan for drainage of the abscess/seroma per the surgery Review of Systems Positive point and negatives has been mentioned in the HPI, complete review of systems was performed and all other systems are negative Past Medical History Past Medical History: Cancer, Hypertension, Sleep Apnea/CPAP/BIPAP Additional Past Medical History / Comment(s): uses cpap depression, mild anemia resolved with hysterectomy, right breast ca History of Any Multi-Drug Resistant Organisms: None Reported Past Surgical History: Breast Surgery, Hysterectomy, Orthopedic Surgery Additional Past Surgical History / Comment(s): ovarian cyst, cervix biopsy, repair radial fracture in right foot, lateral release of right knee, right breast + needle bx Past Anesthesia/Blood Transfusion Reactions: No Reported Reaction, Family History of Problems w/ Anesthesia Additional Past Anesthesia/Blood Transfusion Reaction / Comm: mother had a "weird reaction to anesthesia with hallucinations and delusions"; dad had hard time coming out of anesthesia. no hx blood transfusion Smoking Status: Former smoker - Past Family History Mother Family Medical History: Cancer, Dementia, Eye Disorder, Hypertension, Thyroid Disorder Additional Family Medical History / Comment(s): skin cancer, ovarian cysts, cataracts Father Family Medical History: Dementia, Eye Disorder, Hyperlipidemia, Hypertension, Thyroid Disorder Additional Family Medical History / Comment(s): Parkinson's, glaucoma, macular degeneration Medications and Allergies Home Medications Medication Instructions Recorded Confirmed Type Lisinopril-Hctz 20-12.5 mg 1 tab PO DAILY 03/17/20 01/11/25 History [Zestoretic 20-12.5] amLODIPine [Norvasc] 5 mg PO DAILY 07/16/24 01/11/25 History hydrOXYzine HCL 12.5 - 25 mg PO Q8H PRN 11/26/24 01/11/25 History Cariprazine HCl [Vraylar] 4.5 mg PO DAILY 01/11/25 01/11/25 History Venlafaxine HCl [Effexor XR] 150 mg PO DAILY 01/11/25 01/11/25 History Ciprofloxacin HCl [Cipro] 500 mg PO Q12HR 5 Days #10 tab 01/13/25 Rx Allergies Allergy/AdvReac Type Severity Reaction Status Date / Time codeine Allergy Intermediate Nausea & Verified 01/10/25 21:39 Vomiting aspartame AdvReac Mild Glands Verified 01/10/25 21:39 swell at base of skull morphine AdvReac Itching Verified 01/10/25 21:39 Physical Exam Vitals: Vital Signs Temp Pulse Resp BP Pulse Ox 01/13/25 11:44 98.2 F 69 16 138/72 95 01/13/25 07:52 98.0 F 63 17 153/84 98 01/13/25 01:34 98.0 F 72 17 124/72 97 01/12/25 19:17 98.0 F 70 17 128/72 96 Intake and Output 01/12/25 01/13/25 01/13/25 22:59 06:59 14:59 Intake Total 240 Balance 240 Intake: Oral 240 Other: Voiding Method Toilet # Voids 1 GENERAL DESCRIPTION: Middle-age female lying in bed, no distress. No tachypnea or accessory muscle of respiration use. HEENT: Shows Pallor , no scleral icterus. Oral mucous membrane is dry. No pharyngeal erythema or thrush NECK: Trachea central, no thyromegaly. LUNGS: Unlabored breathing. Clear to auscultation anteriorly. No wheeze or crackle. HEART: S1, S2, regular rate and rhythm. No loud murmur ABDOMEN: Soft, no tenderness , guarding or rigidity, no organomegaly EXTREMITIES: No edema of feet. SKIN: Right breast erythema along the incision area minimal fluctuation no drainage was noticed NEUROLOGICAL: The patient is awake, alert, oriented x3, mood and affect normal. Results CBC & Chem 7: 01/10/25 22:30 01/13/25 04:21 Labs: Microbiology - Last 24 Hours (Table) 01/10/25 22:30 Blood Culture - Preliminary Blood 01/10/25 22:30 Gram Stain - Final Breast - Right Wound Culture - Final Morganella morganii Assessment and Plan (1) Breast abscess Current Visit: Yes Status: Acute Code(s): N61.1 - ABSCESS OF THE BREAST AND NIPPLE SNOMED Code(s): 22576055 Plan: 1patient presented hospital with increasing pain swelling redness to the right breast incision in this patient who is status post lumpectomy for a right breast tumor now with development of infected seroma and culture positive for Morganella which is a drug-resistant pathogen 2-patient benefit from surgical I&D and drainage of this infected seroma to decrease the burden of infection that will help in the healing process this was discussed with the admitting team to hold on the discharge today 3will treat with Rocephin 2 g daily and monitor clinical course closely We will follow on clinical condition and cultures to further adjust medication if needed Thank you for this consultation we will follow the patient along with you Dictation was produced using [employer] dictation software. please excuse any grammatical, word or spelling errors. Time with Patient: Greater than 30
[2025-01-14] MEDS: LIDOCAINE 1% PF 10 MG/ML (5 ML AMP) SQ ONE (07:45)
--- NOTE | 2025-01-14 08:02 | P.PCN ---
Date of Procedure: 01/14/25 Preoperative Diagnosis: Infected seroma right breast Postoperative Diagnosis: Same Procedure(s) Performed: Incision and drainage infected seroma right breast Anesthesia: local Surgeon: Anila Ocampo Pathology: other (Cultures obtained of seroma fluid right breast) Condition: stable Disposition: floor Indications for Procedure: Infected seroma right breast Operative Findings: Seroma fluid Description of Procedure: Following informed consent the area of concern in the right breast was prepped using chlorhexidine. 1% lidocaine was used to anesthetize the area of greatest fluctuance. Using a #10 scalpel an incision was made into the area of fluctuance. Serous fluid drained. Cultures were obtained. The wound was well irrigated with saline. The opening was made at the incision site. The incision was reinforced medially and laterally using a 3-0 nylon suture. The wound was packed using iodoform gauze. The patient tolerated the procedure in stable condition.
[2025-01-14 08:08] VITALS: BP 112/78; PULSE 68; RESP 13; TEMP 97.8
--- NOTE | 2025-01-14 08:08 | P.PN ---
Subjective Progress Note Date: 01/14/25 Principal diagnosis: right breast seroma/infection invasive ductal cancer right breast [id number] Requesting physician: Víctor Mejia History of present illness: Kellen is a 54 year old female seen in consultation for Dr. Mejia on 10-09-24 regarding a biopsy proven right breast invasive ductal cancer at the two OClock position of the right breast. She had a bilateral mammogram on 08-18-24 which showed a lesion of 23 mm in the right breast, no lesions of concern in the left breast. This led to an ultrasound of the right breast and a biopsy of the area of concern on 09-28-24. Her biopsy was an invasive ductal cancer ER+, Pr+ Her2- G3 lesion on 09-28-24. Mammogram and ultrasound personally reviewed and discussed with Dr. Matthews from radiology. She did not feel any lumps masses or nodules of concern in either breast. She gets mammograms annually. She is not complaining of any nipple discharge or skin changes. She has not had any recent trauma or infection in the breast. She has never had any surgery on her breast. She wanted to have a right breast lumpectomy via a reduction mastopexy incision and SNB note medical oncology reviewed: 10-21-24: DR. Nash Ortega genetic testing done, results pending, oncotype 11, no chemotherapy; she was called and told (-) note radiation oncology 11-06-24 reviewed: remote history of ganglicytoma asked to follow with Dr. Mejia; post op radiation therapy; he said they would follow up on that after the breast surgery prior to her surgery on 12-01-24 she was diagnosed with a right ear infection. She underwent right breast lumpectomy and sentinel node biopsy on 12-01-24 via a reduction mammoplasty incision. The tumor was 3 cm with (-) margins and three nodes (-). post procedure her SEVEN drain ws removed about two weeks ago. She was doing well but developed some serous drainage from the lower left inferior incision site. She was seen in the emergency department and admitted for possible infected seroma. An ultrasound was performed which showed fluid present in the breast. The patient is doing well at this time. She has had no more drainage from the incision site. The erythema has decreased. Cultures grew Morgnella Morganii. Consult reviewed by infectious disease who requested that the residual fluid be drained from the breast. I have reviewed the patient's ultrasound with Dr. Esdras Jaimes from radiology, we have discussed the possibility of interventional radiology drainage and drain placement however after discussion with the patient and repeated examination it was felt that the area would best be treated by open drainage. Objective - Vital Signs Vital signs: Vital Signs Temp 98.2 F 01/14/25 06:45 Pulse 70 01/14/25 06:45 Resp 18 01/14/25 06:45 BP 152/73 01/14/25 06:45 Pulse Ox 97 01/14/25 06:45 FiO2 Intake & Output 01/13/25 01/14/25 01/14/25 18:59 06:59 18:59 Intake Total 3120 Balance 3120 Intake: Oral 3120 Other: Voiding Method Toilet Toilet # Voids 5 3 # Bowel Movements 1 - Constitutional General appearance: Present: cooperative - EENT Eyes: Present: EOMI ENT: Present: hearing grossly normal - Integumentary Integumentary Comment(s): Right breast incision clean and dry decreased erythema Residual fluctuance consistent with seroma lower medial aspect of right breast - Labs CBC & Chem 7: 01/10/25 22:30 01/13/25 04:21 Labs: Microbiology - Last 24 Hours (Table) 01/10/25 22:30 Blood Culture - Preliminary Blood 01/10/25 22:30 Gram Stain - Final Breast - Right Wound Culture - Final Morganella morganii Assessment and Plan Assessment: Impression: Right breast invasive ductal carcinoma high-grade status post resection via reduction mammoplasty incision on 12 01 24 Seroma with some drainage from the breast; drainage has stopped No fever no pain in the breast Cultures positive for Morganella Morganii Plan: Appreciate consult infectious disease Consider if wound should be opened and packed secondary to persistent seroma; versus interventional radiology with drain placement reviewed with radiology and have decided on open drainage IV antibiotics as per infectious disease Home health care; change packing iodoform gauze once daily Patient is ready for discharge from a surgical standpoint once the area is drained Follow-up with Dr. Aguilar next week, follow-up sooner any questions or concerns
--- NOTE | 2025-01-14 12:14 | P.DS ---
Providers Date of admission: 01/11/25 00:11 Expected date of discharge: 01/14/25 Attending physician: Rhonda Forman MD Consults: 01/11/25 00:11 Consult Physician Routine Consulting Provider: Anila Ocampo Consult Reason/Comments: post op infection Do you want consulting provider notified?: Yes, Notify in am 01/13/25 09:29 Consult Physician Routine Consulting Provider: Ema David Consult Reason/Comments: right breast wound/culture Do you want consulting provider notified?: Yes Primary care physician: [facility] Hospital Course: 54 year old F with PMH of breast CA, HTN, BRET recently underwent right lumpectomy and breast reduction 5 weeks ago presents to the ED for erythema and yellow drainage from the right breast. In the ED she underwent extensive evaluation. BP 117/82, HR 82, T 98.3F, RR 18, 96% on RA. CBC, Coag panel, CMP significant for Hg 11.6, Hct 34.9, Na 136, Cr 1.05, glu 123, ALT 50, alk phos 186. Lactic acid 1.6. Procal 0.13. CRP 5.8. Breast US suggesting abscess.Patient started on Vancomycin and admitted for further workup and management. 01/11 Patient was seen and examined. No complaints. Continued drainage. 01/12 Patient was seen and examined. No complaints. Antibiotics include Vancomycin and Cezfolin. Surgery recommends no surgical intervention. WCx growing Morganella morganii. BCx neg so far. BMP shows glu 124. 01/13 Patient was seen and examined. Feeling tired. Antibiotics include Rocephin 2g IV QD. Surgery recommending ID consult and possible bedside I&D tomorrow. Renal function shows GFR 69. 01/14 Patient was seen and examined. No complaints. Underwent I&D today. Cleared by Surgery and ID. Discussed with Dr. David recommending Ciprofloxacin x 10 days. Discharge Plan: Ciprofloxacin 500 mg PO BID x 10 days. Follow up with PCP within 1-[address] Ocampo within 1 week of discharge. General: toxic, no distress Derm: warm, dry Head: atraumatic, normocephalic, symmetric Mouth: no lip lesion, mucus membranes moist Cardiovascular: Normal S1 S2. No murmurs, rubs or gallops. Lungs: Clear to auscultation bilaterally, no accessory muscle use Ext: no gross muscle atrophy, no edema, no contractures Neuro: No focal neurologic deficits. Psych: Alert and oriented. 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 Patient Condition at Discharge: Stable Plan - Discharge Summary Discharge Rx Participant: Yes New Discharge Prescriptions: New Ciprofloxacin HCl [Cipro] 500 mg PO Q12HR 10 Days #20 tab Continue Lisinopril-Hctz 20-12.5 mg [Zestoretic 20-12.5] 1 tab PO DAILY hydrOXYzine HCL 12.5 - 25 mg PO Q8H PRN PRN Reason: Anxiety Cariprazine HCl [Vraylar] 4.5 mg PO DAILY amLODIPine [Norvasc] 5 mg PO DAILY Venlafaxine HCl [Effexor XR] 150 mg PO DAILY Discharge Medication List Lisinopril-Hctz 20-12.5 mg [Zestoretic 20-12.5] 1 tab PO DAILY 03/17/20 [History] amLODIPine [Norvasc] 5 mg PO DAILY 07/16/24 [History] hydrOXYzine HCL 12.5 - 25 mg PO Q8H PRN 11/26/24 [History] Cariprazine HCl [Vraylar] 4.5 mg PO DAILY 01/11/25 [History] Venlafaxine HCl [Effexor XR] 150 mg PO DAILY 01/11/25 [History] Ciprofloxacin HCl [Cipro] 500 mg PO Q12HR 10 Days #20 tab 01/14/25 [Rx] Follow up Appointment(s)/Referral(s): Víctor Mejia MD [Primary Care Provider] - 1-2 days Anila Ocampo MD [STAFF PHYSICIAN] - 1 Week Discharge Disposition: HOME SELF-CARE
--- NOTE | 2025-01-14 13:26 | P.PN ---
Subjective Progress Note Date: 01/14/25 Principal diagnosis: Reason for follow-up is right breast abscess Patient is a 54-year-old female with a past medical history significant for hypertension sleep apnea recent diagnosis of right breast cancer in this patient status post right breast lumpectomy while radiation mastopexy incision about 5 weeks ago patient subsequently noticed to having increasing fullness to the incision area with admission to the hospital concerning for right breast abscess culture positive for Morganella in this patient who is status post surgical I&D completed on 01/14/2025. On today's evaluation that is 01/14/2025,the patient denies any fever or any chills, patient is breathing comfortably on room air, the patient denies chest pain shortness of breath and no significant cough, patient denies abdominal pain, no nausea vomiting or diarrhea. Patient mention improvement in her symptoms to the right breast area would like to go home. Patient did not have lab draw today blood culture on admission has been negative Objective - Vital Signs Vital signs: Vital Signs Temp 97.8 F 01/14/25 08:07 Pulse 68 01/14/25 08:07 Resp 13 01/14/25 08:07 BP 112/78 01/14/25 08:07 Pulse Ox 94 L 01/14/25 08:07 FiO2 Intake & Output 01/13/25 01/14/25 01/14/25 18:59 06:59 18:59 Intake Total 3120 1020 Balance 3120 1020 Intake: Oral 3120 1020 Other: Voiding Method Toilet Toilet # Voids 5 3 3 # Bowel Movements 1 - Exam GENERAL DESCRIPTION: Middle-age female lying in bed in no distress RESPIRATORY SYSTEM: Unlabored breathing , decreased breath sounds at bases HEART: S1 S2 regular rate and rhythm , ABDOMEN: Soft , no tenderness - Labs CBC & Chem 7: 01/10/25 22:30 01/13/25 04:21 Labs: Microbiology - Last 24 Hours (Table) 01/10/25 22:30 Blood Culture - Preliminary Blood 01/10/25 22:30 Gram Stain - Final Breast - Right Wound Culture - Final Morganella morganii Assessment and Plan (1) Breast abscess Status: Acute Code(s): N61.1 - ABSCESS OF THE BREAST AND NIPPLE SNOMED Code(s): 26938882 (2) Bacterial infection due to Morganella morganii Status: Acute Code(s): A49.8 - OTHER BACTERIAL INFECTIONS OF UNSPECIFIED SITE SNOMED Code(s): 46997584 Plan: 1patient presented hospital with increasing pain swelling redness to the right breast incision in this patient who is status post lumpectomy for a right breast tumor now with development of infected seroma and culture positive for Miguel A cooper which is a drug-resistant pathogen 2-patient is status post surgical I&D and drainage of this infected seroma feeling better and wants to go home recommended 10-day course of oral Cipro on discharge on the basis of cultures obtained on admission discussed with the admitting team Dictation was produced using [employer] dictation software. please excuse any grammatical, word or spelling errors. Time with Patient: Less than 30
== END 2025-01-14 12:38 | disposition home or self-care (01) ==
LOC: EC 21:35 → 5NMEDONC 01-11 00:11 → INTOOBSV 01-11 00:11 → 5NMEDONC 01-11 01:33
PROVIDERS: ADMIT Internal Medicine; ATTEND Internal Medicine
DX: T81.49XA Infection following a procedure, other surgical site, initial encounter (principal); N61.1 Abscess of the breast and nipple; B96.4 Proteus (mirabilis) (morganii) as the cause of diseases classified elsewhere; N64.89 Other specified disorders of breast; N17.9 Acute kidney failure, unspecified; C50.911 Malignant neoplasm of unspecified site of right female breast; I10 Essential (primary) hypertension; F17.210 Nicotine dependence, cigarettes, uncomplicated; F32.A Depression, unspecified; G47.33 Obstructive sleep apnea (adult) (pediatric); Z88.5 Allergy status to narcotic agent; Z79.899 Other long term (current) drug therapy; Z92.3 Personal history of irradiation; Y83.8 Other surgical procedures as the cause of abnormal reaction of the patient, or of later complication, without mention of misadventure at the time of the procedure; Z17.21 Progesterone receptor positive status; Z17.0 Estrogen receptor positive status [ER+]; Z17.32 Human epidermal growth factor receptor 2 negative status; Z91.02 Food additives allergy status
CPT/HCPCS: 10060; 96361 ×4; 96365 ×2; 96366 ×3; 96367 ×2; 96372 ×4; 99284; 36415; 80053; 80048; 82565 ×2; 83605; 85025; 85610; 85730; 86140; 87040; 87070 ×2; 87205 ×2; 87075; 87077 ×2; 87186 ×2; 84145; 76642; G0378 ×4; J3370 ×2; J0690 ×2; J2003; J0696 ×3; J1650 ×5

== ENCOUNTER → 2025-01-19 | Outpatient (CLI) | payer BC ==
[2025-01-19 08:28] VITALS: BP 123/81; PULSE 85; RESP 17; TEMP 97.2
--- NOTE | 2025-01-19 11:12 | P.BCPO ---
Progress Note - Text Progress Note Date: 01/19/25 12-31-24 Kellen is status post a right breast lumpectomy and SNB via a mammoplasty approach on 12-01-24. Her pathology revealed a 3 cm tumor margins (-), 3 nodes (- ). She has minimal drainage from the drain at this time. Erythema has resolved. 12-10-24 60 cc seroma fluid aspirated The patient subsequently developed some serous drainage from the lower left inferior aspect of her incision. She was seen in the emergency department and admitted for possible infected seroma. The patient's cultures grew Morganella morganii. It was recommended she have open drainage of the seroma. This was performed at her bedside. She was discharged home as per infectious disease. She is doing dressing changes at home. She has no complaints of any fever or chills. lungs: Clear Heart: Regular rate and rhythm Incisions clean and dry minimal erythema at the lower aspect of the wounds resolved Packing change no evidence of seroma at this time review note medical oncology: oncotype 11; no chemotherapy will recommend endocrine therapy after radiation Impression: Doing well status post right breast lumpectomy and sentinel node biopsy Plan: Continue wound care Appointment with medical oncology she will have hormone therapy and another appointment scheduled after radiation therapy follow up in 1 week
== END ==
LOC: WWCWWP 08:02
PROVIDERS: ATTEND Surgery
DX: Z98.890 Other specified postprocedural states (principal); F17.200 Nicotine dependence, unspecified, uncomplicated; Z91.02 Food additives allergy status; Z88.5 Allergy status to narcotic agent

== ENCOUNTER → 2025-01-26 | Outpatient (CLI) | payer BC ==
--- NOTE | 2025-01-26 08:14 | P.PN ---
Subjective Progress Note Date: 01/26/2512-31-24 Kellen is status post a right breast lumpectomy and SNB via a mammoplasty approach on 12-01-24. Her pathology revealed a 3 cm tumor margins (-), 3 nodes (- ). She has minimal drainage from the drain at this time. Erythema has resolved. 12-10-24 60 cc seroma fluid aspirated 01-19-25 The patient subsequently developed some serous drainage from the lower left inferior aspect of her incision. She was seen in the emergency department and admitted for possible infected seroma. The patient's cultures grew Morganella morganii. It was recommended she have open drainage of the seroma. This was performed at her bedside. She was discharged home as per infectious disease. She is doing dressing changes at home. She has no complaints of any fever or chills. 01-26-25 At this time the patient is doing well. She has had no fever or chills. There is no pain or erythema in the breast. Area is being packed by her at home. lungs: Clear Heart: Regular rate and rhythm Incisions clean and dry minimal erythema at the lower aspect of the wounds resolved Packing change no evidence of seroma at this time; review note medical oncology: oncotype 11; no chemotherapy will recommend endocrine therapy after radiation Measurement of the area reveals that the medial aspect tracks 6.5 cm, it is very superficial with a depth of approximately 5 mm and the opening at the skin surface is approximately 1 centimeter Impression: Doing well status post right breast lumpectomy and sentinel node biopsy Plan: sutures removed Continue wound care Appointment with medical oncology she will have hormone therapy appointment radiation oncology do not start radiation until healed follow up in 2 weeks
[2025-01-26 08:24] VITALS: BP 137/82; PULSE 87; RESP 18; TEMP 96.9
== END ==
LOC: WWCWWP 08:00
PROVIDERS: ATTEND Surgery
DX: Z98.890 Other specified postprocedural states (principal); F17.200 Nicotine dependence, unspecified, uncomplicated; Z91.02 Food additives allergy status; Z88.5 Allergy status to narcotic agent

== ENCOUNTER → 2025-02-11 | Outpatient (CLI) | payer BC ==
[2025-02-11 08:55] VITALS: BP 115/79; PULSE 72; RESP 17; TEMP 97.1
--- NOTE | 2025-02-11 09:36 | P.PN ---
Subjective Progress Note Date: 02/11/25 Visit from 01-26-25 the wound in the right breast is evaluated: Nature of wound: Open Location of the wound right breast/inferior aspect Wound size 6.5 cm x 8 mm x 5 mm Drainage: Moderate This is a full-thickness wound There is no home health care involved Original Note: Subjective Progress Note Date: 01/26/2512-31-24 Kellen is status post a right breast lumpectomy and SNB via a mammoplasty approach on 12-01-24. Her pathology revealed a 3 cm tumor margins (-), 3 nodes (- ). She has minimal drainage from the drain at this time. Erythema has resolved. 12-10-24 60 cc seroma fluid aspirated 01-19-25 The patient subsequently developed some serous drainage from the lower left inferior aspect of her incision. She was seen in the emergency department and admitted for possible infected seroma. The patient's cultures grew Morganella morganii. It was recommended she have open drainage of the seroma. This was performed at her bedside. She was discharged home as per infectious disease. She is doing dressing changes at home. She has no complaints of any fever or chills. 01-26-25 At this time the patient is doing well. She has had no fever or chills. There is no pain or erythema in the breast. Area is being packed by her at home. lungs: Clear Heart: Regular rate and rhythm Incisions clean and dry minimal erythema at the lower aspect of the wounds resolved Packing change no evidence of seroma at this time; review note medical oncology: oncotype 11; no chemotherapy will recommend endocrine therapy after radiation Measurement of the area reveals that the medial aspect tracks 6.5 cm, it is very superficial with a depth of approximately 5 mm and the opening at the skin surface is approximately 1 centimeter 02-11-25 Kellen is status post a right breast lumpectomy and SNB via a mammoplasty approach on 12-01-24. Her pathology revealed a 3 cm tumor margins (-), 3 nodes (- ). She has minimal drainage from the drain at this time. Erythema has resolved. The patient subsequently developed some serous drainage from the lower left inferior aspect of her incision. She was seen in the emergency department and admitted for possible infected seroma. The patient's cultures grew Morganella morganii. It was recommended she have open drainage of the seroma. This was performed at her bedside. She is doing well at this time. She has started radiation therapy. Oncotype: 11, no chemotherapy Endocrine therapy will be recommended after radiation lungs: Clear Heart: Regular rate and rhythm Incisions clean and dry Impression: Doing well status post right breast lumpectomy and sentinel node biopsy Plan: Appointment with medical oncology she will have hormone therapy Patient is undergoing radiation therapy at this time We will do a reduction mammoplasty of the contralateral breast most likely in the fall follow up in 4 months CC: Dr. Mejia Objective - Vital Signs Vital signs: Vital Signs Temp 97.1 F L 02/11/25 08:53 Pulse 72 02/11/25 08:53 Resp 17 02/11/25 08:53 BP 115/79 02/11/25 08:53 Pulse Ox 97 02/11/25 08:53 FiO2 Intake & Output 02/10/25 02/11/25 02/11/25 18:59 06:59 18:59 Weight 158.757 kg
== END ==
LOC: WWCWWP 08:39
PROVIDERS: ATTEND Surgery
DX: C50.111 Malignant neoplasm of central portion of right female breast (principal); F17.200 Nicotine dependence, unspecified, uncomplicated; Z88.5 Allergy status to narcotic agent; Z91.02 Food additives allergy status